=== PATIENT | male | born 1955 | race Caucasian/White ===

== ENCOUNTER 2020-01-29 07:30 | Outpatient (CLI) | payer OTHER, SELFPAY ==
--- NOTE | ~2020-01-29 | MR_ITS ---
EXAMINATION: MR foot RT wo con DATE: 01/29/2020 08:39 INDICATION: Stress fracture. TECHNIQUE: Magnetic resonance imaging (MRI) of the right foot was performed without intravenous contr ast. Sequences included sagittal T1-weighted FSE and STIR FSE, long-axis PD-weighted FS FSE and PD-we ighted FSE, and short-axis PD-weighted FS FSE and T1-weighted FSE. COMPARISON: None FINDINGS: Bone alignment is normal. No fracture. There is mild osteoarthritis of second tarsometatars al joint. There is mild osteoarthritis between the medial and intermediate cuneiforms. Lisfranc ligam ent is intact. The flexor and extensor tendons are normal. There is thickening of the included portio n of the central band of plantar fascia, consistent with fasciitis. IMPRESSION: 1. No fracture. 2. Mild polyarticular osteoarthritis. 3. Plantar fasciitis. Reviewed, dictated and finalized at location A.
== END 2020-01-29 07:31 | disposition home or self-care (01) ==
LOC: ANHIMG 07:35
PROVIDERS: PCP Emergency Medicine; Visit Provider Podiatrist Foot & Ankle Surgery
DX: M84.374A Stress fracture, right foot, initial encounter for fracture (principal); M19.071 Primary osteoarthritis, right ankle and foot; M72.2 Plantar fascial fibromatosis
CPT/HCPCS: 73718

== ENCOUNTER 2021-06-02 01:37 | Day surgery (SDC) | payer OTHER, SELFPAY ==
[2021-06-02] VITALS (16 sets, daily range): BP systolic 110–137; BP diastolic 70–83; PULSE 51–65; RESP 12–18; TEMP 36.2; O2SAT 94–98; BMI 30.1
[2021-06-02 08:06] LABS: INR 0.8; Prothrombin Time 11.4 Seconds (11.1-14.7)
--- NOTE | 2021-06-02 09:02 | P.SEDATION_ITS ---
Moderate Sedation Note-Pt Data Patient Data Allergies Allergy/AdvReac Type Severity Reaction Status Date / Time No Known Allergies Allergy Verified 05/11/21 10:09 Home Medications Medication Instructions Recorded Confirmed Type cholecalciferol (vitamin D3) 50 2,000 unit PO DAILY 08/08/19 06/01/21 History mcg (2,000 unit) tablet venlafaxine 75 mg capsule,extended 75 mg PO DAILY 04/02/21 06/01/21 History release 24 hr pravastatin 20 mg tablet 20 mg PO DAILY #90 tablet 05/06/21 06/01/21 Rx aspirin 81 mg tablet,delayed 81 mg PO DAILY 05/11/21 06/01/21 History release Current Medications: Active Medications Sodium Chloride (Normal Saline Iv) 500 mls @ 100 mls/hr IV CONT .Q5H YESSENIA Sedation/Anesthesia: No previous sedation/anesthesia problems (including family history). [facility] Past Medical History Medical History Hypogonadism Family History Family History Father Patient's father is in good health Mother No family history of cerebrovascular accident (CVA) Family history of Alzheimer's disease Other Family history of alcoholism Social History Social History Social History: Patient exercises 4-5 times per week. 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[employer] Gender identity (if verbalized by the patient): Female Sexual Orientation (if Verbalized by the Patient): Straight or Heterosexual Mod Sed Physical Exam Physical Exam Pre Procedural Exam: Normal: Airway Hours since solid foods: 10 Hours since liquid intake: 10 Mallampati Classification: class II Internal Medicine - PN: Obj Da Vital Signs Vital Signs: Vital Signs - 24 hr 06/02/21 07:30 Temperature 36.2 C L Pulse Rate 56 L Respiratory Rate 16 Blood Pressure 125/77 Pulse Oximetry 96 Meds/Results Medications: Active Medications Generic Name Dose Route Start Last Admin Trade Name Freq PRN Reason Stop Dose Admin Sodium Chloride 500 mls @ 100 mls/hr 06/02/21 07:00 Normal Saline Iv IV CONT .Q5H YESSENIA Labs Labs: Laboratory Results - last 24 hr 06/02/21 07:28 PT 11.4 INR 0.8 ASA Classification/Sedation ASA Classification/Sedation ASA Class: II Emergent: No Risks: Risks, benefits and alternatives explained and patient/family accepted plan for sedation. Patient re-evaluated immediately prior to sedation.
--- NOTE | 2021-06-02 09:04 | WPDHPUPDATE1 ---
History and Physical Update Update Date/Time: 06/02/21 09:04 History and Physical has been reviewed, including an updated exam of the patient. There are NO changes in the patient's condition. Risks, benefits, and alternatives have been discussed and questions answered. Patient agrees to proceed with procedure.
--- NOTE | 2021-06-02 09:36 | WPDCARDPROC ---
Cardiac Cath Procedure Note Date of procedure:: 06/02/21 Performing physician:: Jovon Lima MD Procedure Procedure performed:: LEFT HEART CATHETERIZATION AND CORONARY ANGIOGRAM REPORT DATE OF PROCEDURE:06/02/2021 INDICATION FOR PROCEDURE: Angina, obstructive CAD seen on coronary CT angiogram BRIEF CLINICAL HISTORY: 65-year-old male with no known prior cardiac history was referred by Dr. Lamb for coronary angiogram in the setting of angina and abnormal coronary CT angiogram. Patient apparently had coronary CT angiogram at [facility] on 04/20/21 which reportedly showed mid LAD with severe >70% stenosis; multifocal mild <50% RCA and LCx stenosis. Calcium score 277. Prior stress test from 03/23/2021 reported 1-[address] depression in inferior leads and V4-V6 c/w ischemia. Benefits and risks of the procedure were discussed with the patient in depth, and informed consent was obtained prior to the procedure. Risks of the procedure include but are not limited to vascular complications including groin hematoma, retroperitoneal bleed, vessel perforation; periprocedural GA, cardiac arrhythmias, stroke, contrast induced nephropathy, and . After discussing all the benefits, risks and alternatives, patient was willing to proceed with the procedure. PROCEDURES PERFORMED: 1. Left heart catheterization- Selective left and right coronary angiogram; left ventriculogram and hemodynamic assessment 2. Moderate sedation-CPT code 47082 MODERATE SEDATION: Midazolam 2 mg; fentanyl 50 mcg; Start time 0910 , Stop time 0927 ; Total [id number] time 17 minutes; Ted Villafana RN was trained observer for moderate sedation. ACCESS SITE: Right common femoral artery PROCEDURE NOTE: After obtaining informed consent, patient was brought to catheterization lab and prepped and draped in a usual sterile manner. After local anesthesia with lidocaine, right common femoral artery access was taken with micropuncture needle followed by insertion of a 6 [place]ian sheath. Selective left and right coronary angiogram was performed using 5 [place] JL4 and JR4 catheters respectively. Orthogonal views were taken. Next, a 5 [place] pigtail catheter was advanced in the LV cavity and was flushed with normal saline. LV pressure measurement was performed. After this, left ventriculogram was performed. The catheter was flushed again, and gradient across the aortic valve was measured on the pullback of the catheter. Patient tolerated procedure well without any immediate procedure related complications. FINDINGS: LEFT MAIN CORONARY: the left main coronary is a large caliber vessel with minimal narrowing at the ostium-proximal segment. The vessel trifurcates into LAD, ramus intermedius and left circumflex branches. LEFT ANTERIOR DESCENDING ARTERY: The proximal LAD is a medium caliber vessel with minor irregularities. There is high-grade about 90% stenosis in the lower most part of the proximal LAD and upper part of the mid LAD at the origin of the major diagonal branch. The major diagonal branch is a small to medium caliber vessel with high-grade stenosis in the ostium and in the proximal segment (Costa 1, 1, 1) . The LAD tapers distally and wraps LV apex. RAMUS INTERMEDIUS: A small to medium caliber vessel with high-grade about 80-90% stenosis in the proximal segment LEFT CIRCUMFLEX ARTERY: the left circumflex artery is a medium caliber vessel with mild narrowing at the ostium and minor diffuse irregularities. The vessel continues as OM branch. RIGHT CORONARY ARTERY: The right coronary artery is a medium caliber vessel with mild diffuse plaque in the Proximal- mid segment. The vessel gives rise to small caliber PDA and PLV branches. LEFT VENTRICULOGRAM: preserved overall LV systolic function with mild hypokinesis of anterior wall; ejection fraction 60-65%. LVEDP 4 mmHg. HEMODYNAMIC ASSESSMENT: Opening pressure 112/61 mmHg , closing pressure 110/40 mmHg , LVED
--- NOTE | 2021-06-02 16:45 | SUR.PHASEII ---
Pt departs department via wheelchair. Transported to private vehicle where is to drive patient home. DC instructions packet reviewed with patient. Pt aware of all limitations and restrictions, as well as follow up care instructions. All of patient's questions were answered. Pt verbalized understanding. IV discontinued, catheter intact, pressure applied, no bleeding noted. VSS upon DC.
== END 2021-06-02 16:45 | disposition home or self-care (01) ==
PROVIDERS: PCP Emergency Medicine; Visit Provider Internal Medicine Cardiovascular Disease
PROC: 4A023N7 Measurement of Cardiac Sampling and Pressure, Left Heart, Percutaneous Approach (ICD-10-PCS; CPT 93452; principal; 2021-06-02 08:30)
DX: I25.119 Atherosclerotic heart disease of native coronary artery with unspecified angina pectoris (principal); Z87.891 Personal history of nicotine dependence
CPT/HCPCS: 36415; 85610; 93458; C1887; C1894; J0461; J1644; J2250; J3010; J7040

== ENCOUNTER 2021-09-23 07:15 | Outpatient (RCR) | payer OTHER, SELFPAY ==
[2021-06-30 08:44] VITALS: PULSE 60
--- NOTE | 2021-08-13 08:43 | PCCPR ---
Absent Bal called this am states will not be in and is not ill.
--- NOTE | 2021-08-17 07:47 | PCCARD ---
Absent Bal called states will not be in due to an emergency.
--- NOTE | 2021-08-19 07:27 | PCCPR ---
Bal absent this week for illness.
== END 2021-09-23 16:52 | disposition home or self-care (01) ==
LOC: ANHCPREHAB 07:15
PROVIDERS: PCP Emergency Medicine; Visit Provider Internal Medicine Cardiovascular Disease
DX: Z95.5 Presence of coronary angioplasty implant and graft (principal)
CPT/HCPCS: 93798

== ENCOUNTER 2022-07-28 09:43 | Outpatient (CLI) | payer OTHER, SELFPAY ==
[2022-07-28 10:12] LABS: Cholesterol 149 mg/dL (0-200); HDL Direct 46 mg/dL; Triglycerides 123 mg/dL (<150)
[2022-07-28 10:23] LABS: LDL Cholesterol Direct 74 mg/dL
== END 2022-07-28 09:44 | disposition home or self-care (01) ==
PROVIDERS: PCP Emergency Medicine; Visit Provider Internal Medicine Cardiovascular Disease
DX: E78.5 Hyperlipidemia, unspecified (principal)
CPT/HCPCS: 36415; 80061

== ENCOUNTER 2023-02-11 07:23 | Emergency (ER) | payer OTHER, SELFPAY ==
--- NOTE | ~2023-02-11 | XR_ITS ---
EXAMINATION: XR chest 2V 02/11/2023 08:08 INDICATION: Heart palpitations. Shortness of breath. PROCEDURE: PA and lateral views of the chest COMPARISON: 06/13/2014 FINDINGS: The lungs are clear. The cardiomediastinal silhouette is within normal limits. There are no pleural effusions. There is no pneumothorax suspected. IMPRESSION: 1: NO ACUTE CARDIOPULMONARY DISEASE. Reviewed, dictated and finalized at location B.
--- NOTE | ~2023-02-11 | CT_ITS ---
Clinical Indication: Palpitations, elevated d-dimer CT Scan of the Chest with Contrast: Technique: Contiguous sections were acquired throughout the chest after intravenous administration of 100 cc of Omnipaque 350. Dose reduction technique was used on this scan by utilizing automated expos ure control and iterative reconstruction technique. The dose-length product (DLP) was 668.66 mGy-cm. Findings: There is no evidence of any significant mediastinal, hilar or axillary lymphadenopathy. There is no f illing defect in the pulmonary arterial tree to suggest pulmonary embolus. There is no evidence of ao rtic dissection or aneurysm. There is no evidence of pleural or pericardial effusion. The lungs are clear. No pulmonary nodules or infiltrates are noted. Images through the upper abdomen reveal no abnormalities. Impression: No evidence of pulmonary embolus, aortic dissection, or aortic aneurysm. Clear lungs. Reviewed, dictated and finalized at [facility]. Impression: No evidence of pulmonary embolus, aortic dissection, or aortic aneurysm. Clear lungs.
--- NOTE | 2023-02-11 07:29 | ECG_ITS ---
Measurements Intervals Home Rate: 106 P: 26 AL: 124 QRS: 47 QRSD: 90 T: 44 QT: 315 QTc: 419 Interpretive Statements SINUS TACHYCARDIA ABNORMAL ECG NO PREVIOUS ECG AVAILABLE FOR COMPARISON Electronically Signed On 02-11-2023 7:37:18 CDT by Matt Lamb D.O.
[2023-02-11 07:30] VITALS: BP 134/75; PULSE 108; RESP 30; TEMP 37.5; O2SAT 97
[2023-02-11 07:51] LABS: Basophils Percent Auto 0.4 % (0.2-1.2); Hematocrit 39.9 % (42.0-52.0); Hemoglobin 13.8 g/dL (14.0-18.0); Immature Granulocyte Absolute 0.02 K/mm3 (0.00-0.031); Immature Granulocyte Percent A 0.4 % (0-0.5); Lymphocytes Percent Auto 8.1 % (18.3-44.2); Mean Corpuscular HGB Conc 34.6 g/dl (32-36); Mean Corpuscular Hemoglobin 30.3 pg (26-34); Mean Corpuscular Volume 87.7 fl (80-100); Mean Platelet Volume 11.2 fl (7.4-10.4); Monocytes Percent Auto 0.4 % (2.6-8.5); Neutrophils Absolute Auto 4.5 K/mm3 (1.3-6.7); Neutrophils Percent Auto 90.7 % (45.5-73.1); Platelet Count Result 151 k/mm3 (150-375); Red Blood Count 4.55 M/mm3 (4.6-6.20); Red Cell Distribution Width 13.5 % (11.5-14.5); White Blood Count 4.9 K/mm3 (4.5-10.0)
--- NOTE | 2023-02-11 07:57 | ED.GENADULT ---
HPI - General Adult General Chief complaint: Unspecified Stated complaint: heart palp/sob Time Seen by Provider: 02/11/23 07:27 History of Present Illness HPI narrative: 67-year-old male presented to the emergency department for evaluation of hematuria and shortness of breath. Patient states he does have history of enlarged prostate follows up with Dr. Brown and patient does straight cath. Patient states last night when he was straight cathing he suspects he may have injured himself and patient did have bleeding. Patient did have some urinary bleeding throughout the night. Patient states he did not straight cath himself this morning. This morning when he woke up patient reports he was breathing heavily so he presented to the ED for evaluation. Patient denies any chest pain. Does have a prior history of cardiac stents that were placed at [facility] 1.5 years ago. Patient does take aspirin and Plavix. Patient denies any associated chest pain today. Related Data Home Medications Medication Instructions Recorded Confirmed venlafaxine 75 mg capsule,extended 75 mg PO DAILY 04/02/21 06/30/21 release 24 hr aspirin 81 mg tablet,delayed 81 mg PO DAILY 05/11/21 06/30/21 release (Adult Low Dose Aspirin) hydroxyzine HCl 50 mg tablet 50 mg PO DAILY PRN Itching 06/30/21 06/30/21 isosorbide mononitrate 30 mg 30 mg PO DAILY 06/30/21 06/30/21 tablet,extended release 24 hr metoprolol succinate 25 mg 25 mg PO DAILY 06/30/21 06/30/21 tablet,extended release 24 hr nitroglycerin 0.4 mg sublingual 0.4 mg sublingual Q5-15M PRN Chest 06/30/21 06/30/21 tablet Pain pantoprazole 40 mg tablet,delayed 40 mg PO QAM 06/30/21 06/30/21 release venlafaxine 37.5 mg 37.5 mg PO DAILY 06/30/21 06/30/21 tablet,extended release 24 hr Allergies Allergy/AdvReac Type Severity Reaction Status Date / Time No Known Allergies Allergy Verified 02/11/23 07:39 Review of Systems Review of Systems: All systems reviewed & are unremarkable except as noted in HPI and below PMFSH Past Medical History Medical History Hypogonadism Family History Family History Father Patient's father is in good health Mother No family history of cerebrovascular accident (CVA) Family history of Alzheimer's disease Other Family history of alcoholism Social History Social History Social History: Patient exercises 4-5 times per week. 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 HEAD: normocephalic, atraumatic. EYES: PERRLA/EOMI, conjunctivae clear. NOSE: Normal no drainage NECK: Supple. No adenopathy, no masses. RESPIRATORY: Airway patent, respirations nonlabored. Clear to auscultation bilaterally, no rales, rhonchi, wheezing. CARDIOVASCULAR: Regular rate and rhythm without murmurs rubs or gallops. ABDOMINAL: Soft, nontender, nondistended, normal bowel sounds MUSCULOSKELETAL: Moves all extremities. Strength/ROM intact, No edema, No calf tenderness. NEURO: Alert. Cranial nerves II through XII intact. SKIN: Warm, dry. Normal Color Course Course Emergency Course: 67-year-old
[2023-02-11 08:01] LABS: Alanine Aminotransferase 31 U/L (6-50); Albumin Level 4.1 g/dL (3.5-5.1); Alkaline Phosphatase 127 U/L (38-126); Anion Gap 10 mmol/L (8-16); Aspartate Amino Transferase 38 U/L (17-59); Bilirubin,Total 1.6 mg/dL (0.2-1.3); Blood Urea Nitrogen 16 mg/dL (9-20); Calcium 8.6 mg/dL (8.4-10.2); Carbon Dioxide 19 mmol/L (22-30); Chloride 106 mmol/L (98-107); Estimated CRCL calculation 72 ml/min; Estimated Glomerular Filt Rate > 60; Glucose 121 mg/dL (65-110); INR 1.1; Lipase 100 U/L (23-300); Potassium 3.8 mmol/L (3.4-5.0); Prothrombin Time 14.6 Seconds (11.1-14.7); Sodium 135 mmol/L (137-145)
[2023-02-11 08:03] LABS: Partial Thromboplastin Time 29.1 SECONDS (22.3-36.8)
[2023-02-11 08:13] LABS: Troponin I 0.014 ng/mL (0.000-0.034)
[2023-02-11 08:35] LABS: D Dimer 11.17 ug/mL (<0.48)
[2023-02-11 08:38] VITALS: RESP 27; O2SAT 99
[2023-02-11 09:12] LABS: Influenza A QL RT-PCR Negative (Negative); Influenza B QL RT-PCR Negative (Negative); RSV RNA, RT-PCR Negative (Negative); SARS-CoV-2 RNA PCR Negative (Negative)
[2023-02-11 09:32] VITALS: BP 105/73; PULSE 97; RESP 22; O2SAT 98
[2023-02-11 10:02] VITALS: BP 99/66; PULSE 89; RESP 24; O2SAT 100
[2023-02-11 10:24] LABS: Bacteria Urine 4+ /hpf; Non Pathogenic Casts 0-2; RBC Urine >100 /hpf (0-2); Squamous Epithelial Cell Urine None seen /hpf (Few); WBC Urine >100 /hpf
[2023-02-11 10:32] LABS: Appearance Urine Cloudy (Clear); Bilirubin Urine Negative (Negative); Blood Urine 3+ (Negative); Glucose Urine UA Negative (Negative); Ketones Urine Negative (Negative); Leukocyte Esterase Ur 3+ LEU/UL (Negative); Nitrate Urine Positive (Negative); Protein Urine 2+ mg/dL (Negative); Specific Grav Ur 1.009 (1.001-1.035); pH Urine 6.5 (5.0-9.0)
[2023-02-11 10:33] LABS: Color Urine Brown (Yellow)
[2023-02-11 10:34] LABS: Add Urine Microscopic? YES
--- NOTE | 2023-02-11 11:11 | PC.NURSE ---
report received from Darlyn BINGHAM at this time
[2023-02-11 11:28] LABS: Troponin I 0.034 ng/mL (0.000-0.034)
[2023-02-11 11:59] VITALS: BP 118/73; PULSE 88; RESP 16; O2SAT 99
== END 2023-02-11 12:00 | disposition home or self-care (01) ==
PROVIDERS: Emergency Provider Emergency Medicine; PCP Emergency Medicine; Referring Provider Urology
DX: N30.01 Acute cystitis with hematuria (principal); Z20.822 Contact with and (suspected) exposure to COVID-19; N40.0 Benign prostatic hyperplasia without lower urinary tract symptoms; Z95.5 Presence of coronary angioplasty implant and graft; Z87.891 Personal history of nicotine dependence; Z79.82 Long term (current) use of aspirin; Z79.02 Long term (current) use of antithrombotics/antiplatelets
CPT/HCPCS: 36415; 71046; 71275; 80053; 81001; 83690; 84484; 85025; 85380; 85610; 85730; 87077; 87086; 87186; 87637; 93005; 96365; 99284; J0696; Q9967

== ENCOUNTER 2023-04-07 11:21 | Outpatient (CLI) | payer OTHER, SELFPAY | END 2023-04-07 11:22 | disposition home or self-care (01) | PROVIDERS: PCP Emergency Medicine; Visit Provider Urology | DX: N40.0 Benign prostatic hyperplasia without lower urinary tract symptoms (principal); Z01.818 Encounter for other preprocedural examination | CPT/HCPCS: 87077; 87086; 87186 ==

== ENCOUNTER 2023-05-19 08:04 | Outpatient (CLI) | payer OTHER, SELFPAY ==
[2023-05-19 08:48] LABS: Basophils Absolute Auto 0.1 K/mm3 (0.0-0.1); Basophils Percent Auto 0.9 % (0.2-1.2); Eosinophils Absolute Auto 0.1 K/mm3 (0-0.3); Eosinophils Percent Auto 1.5 % (0-4.4); Hematocrit 40.7 % (42.0-52.0); Hemoglobin 12.9 g/dL (14.0-18.0); Immature Granulocyte Absolute 0.03 K/mm3 (0.00-0.031); Immature Granulocyte Percent A 0.4 % (0-0.5); Lymphocytes Absolute Auto 2.61 K/mm3 (0.9-3.2); Lymphocytes Percent Auto 34.8 % (18.3-44.2); Mean Corpuscular HGB Conc 31.7 g/dl (32-36); Mean Corpuscular Volume 88.3 fl (80-100); Monocytes Absolute Auto 0.4 K/mm3 (0.1-0.6); Monocytes Percent Auto 5.5 % (2.6-8.5); Neutrophils Absolute Auto 4.3 K/mm3 (1.3-6.7); Neutrophils Percent Auto 56.9 % (45.5-73.1); Platelet Count Result 331 k/mm3 (150-375); Red Blood Count 4.61 M/mm3 (4.6-6.20); Red Cell Distribution Width 14.3 % (11.5-14.5); White Blood Count 7.5 K/mm3 (4.5-10.0)
[2023-05-19 09:22] LABS: Partial Thromboplastin Time 33.9 SECONDS (22.3-36.8); Prothrombin Time 13.9 Seconds (11.1-14.7)
== END 2023-05-19 08:05 | disposition home or self-care (01) ==
LOC: ANHSURGERY 08:07
PROVIDERS: PCP Emergency Medicine; Visit Provider Urology
DX: Z01.818 Encounter for other preprocedural examination (principal); N40.0 Benign prostatic hyperplasia without lower urinary tract symptoms
CPT/HCPCS: 36415; 85025; 85610; 85730; 87086

== ENCOUNTER 2023-05-24 02:41 | Day surgery (SDC) | payer OTHER, SELFPAY ==
--- NOTE | 2023-03-21 10:26 | PC.NURSE ---
Report to the Outpatient Waiting Room, entrance under the green pavilion located off [facility], at time _1000 on date _03/29/23 . Planned Procedure Time: ___1200 . Time changes happen often and if your time is changed the preop area will call you the afternoon before. - You and your visitor will be asked to self-screen and do not enter if you have any COVID symptoms. - A mask is optional within the hospital at this time. Patients may have clear liquids (water, carbonated beverages, clear teas, apple juice) until 3 hours prior to surgery with a maximum of 20 ounces. - No food from midnight until time of surgery - Infants may have breast milk until 4 hours before surgery, infant formula 6 hours prior to surgery. - Children will be allowed to drink immediately following surgery. If applicable, please bring a bottle or sippy cup to assist with drinking. Juice, water, soda, and popsicles are readily available. For infants on formula, please bring formula the day of surgery. Pacifiers are allowed. Take the following medications with a SIP of water the morning of surgery: ____METOPROLOL,VENLAFAXINE DO NOT STOP ANY OF YOUR OTHER PRESCRIPTION MEDICATIONS PRIOR TO SURGERY ?EXCEPT THE FOLLOWING Medications to discontinue per physician ____ASPIRIN AND PLAVIX 7 DAYS PER OP PER DR HERNANDEZ.LAST DOSE 03/21/23 Please no make-up, nail slovak, hairspray, perfume, deodorant, or body powder the day of surgery. No jewelry (including any body piercings) or valuables the day of surgery, leave them at home. Please take a shower or bath the night before, or the morning of, surgery with an antibacterial soap. Wear comfortable, loose fitting clothing. Children are encouraged to wear pajamas. - Jewelry must be removed prior to entering the operating room. Rings and piercings that are not removed may be cut off. - The hospital will not accept responsibility for valuables. - Please leave all valuables, including medications, at home the day of surgery. If you are going home after surgery, a licensed fuel truck driver must drive you home. - NO public transportation without another adult if you receive anesthesia. - We recommend that an adult stay with you for 24 hours following discharge. - We also recommend that you do not drive, make important decision, drink alcoholic beverages, or take any drugs that were not prescribed by your health care provider for at least 24 hours after your discharge time. For Pediatric surgeries, we recommend two adults accompany the child home. Follow any additional instructions given to you from your surgeon. If you or anyone in your household have experienced Covid symptoms in the past week, please notify your surgeon or the nurse liaison at the phone number below for possible testing. Telephone instructions given to __PATIENT and asked if any additional questions and then verbalized understanding. Patient advised to call surgeon office or pre surgery nurse liaison [phone] if any additional questions.
[2023-03-21 10:34] VITALS: BMI 30.4
--- NOTE | 2023-03-28 10:38 | WPDANESEPPF ---
Anes - Initial Pre Proc Eval Procedure: Operation Date: 03/29/23 12:00 Proposed Procedures p Trans Urethral Resection Prostate - Blaine Brown MD Date/Time: 03/28/23 10:38 Surgeon: Blaine Brown MD Pre Op Diagnosis: bph Patient Data Age: 67 Gender: M Height: 1.8 m Weight: 98.9 kg Allergies Allergy/AdvReac Type Severity Reaction Status Date / Time No Known Allergies Allergy Verified 03/21/23 10:15 Home Medications Medication Instructions Recorded Confirmed Type aspirin 81 mg tablet,delayed 81 mg PO DAILY 05/11/21 03/21/23 History release (Adult Low Dose Aspirin) atorvastatin 80 mg tablet 80 mg PO HS #30 tabs 06/02/21 03/21/23 Rx hydroxyzine HCl 50 mg tablet 50 mg PO DAILY PRN Anxiety 06/30/21 03/21/23 History metoprolol succinate 25 mg 25 mg PO DAILY 06/30/21 03/21/23 History tablet,extended release 24 hr nitroglycerin 0.4 mg sublingual 0.4 mg sublingual Q5-15M PRN Chest 06/30/21 03/21/23 History tablet Pain pantoprazole 40 mg tablet,delayed 40 mg PO QAM 06/30/21 03/21/23 History release clopidogrel 75 mg tablet 75 mg PO DAILY 03/21/23 03/21/23 History tamsulosin 0.4 mg capsule 0.4 mg PO DAILY 03/21/23 03/21/23 History venlafaxine 150 mg 150 mg PO QAM 03/21/23 03/21/23 History capsule,extended release 24 hr Results Review: All pre-operative results and documents have been reviewed as part of the pre-operative evaluation. [facility] Past Medical History Medical History Hypogonadism Family History Family History Father Patient's father is in good health Mother No family history of cerebrovascular accident (CVA) Family history of Alzheimer's disease Other Family history of alcoholism Social History Social History Social History: Patient exercises 4-5 times per week. 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 Informed Consent: The patient's anesthetic plan and its attendant risks and benefits were discussed with the patient/family/POA. Questions were solicited and answers provided to the satisfaction of the patient/family/POA.
--- NOTE | 2023-03-28 15:12 | PC.NURSE ---
Report to the Outpatient Waiting Room, entrance under the green pavilion located off [facility], at time _0800 on date _04/12/23 . Planned Procedure Time: ___1000 . Time changes happen often and if your time is changed the preop area will call you the afternoon before. - You and your visitor will be asked to self-screen and do not enter if you have any COVID symptoms. - A mask is optional within the hospital at this time. Patients may have clear liquids (water, carbonated beverages, clear teas, apple juice) until 3 hours prior to surgery with a maximum of 20 ounces. - No food from midnight until time of surgery - Infants may have breast milk until 4 hours before surgery, infant formula 6 hours prior to surgery. - Children will be allowed to drink immediately following surgery. If applicable, please bring a bottle or sippy cup to assist with drinking. Juice, water, soda, and popsicles are readily available. For infants on formula, please bring formula the day of surgery. Pacifiers are allowed. Take the following medications with a SIP of water the morning of surgery: ____METOPROLOL,VENLAFAXINE DO NOT STOP ANY OF YOUR OTHER PRESCRIPTION MEDICATIONS PRIOR TO SURGERY ?EXCEPT THE FOLLOWING Medications to discontinue per physician ___HOLD ASPIRIN AND PLAVIX 7 DAYS PRE OP PER DR HERNANDEZ.LAST DOSE 04/04/23 Please no make-up, nail lao, hairspray, perfume, deodorant, or body powder the day of surgery. No jewelry (including any body piercings) or valuables the day of surgery, leave them at home. Please take a shower or bath the night before, or the morning of, surgery with an antibacterial soap. Wear comfortable, loose fitting clothing. Children are encouraged to wear pajamas. - Jewelry must be removed prior to entering the operating room. Rings and piercings that are not removed may be cut off. - The hospital will not accept responsibility for valuables. - Please leave all valuables, including medications, at home the day of surgery. If you are going home after surgery, a licensed driver license agent must drive you home. - NO public transportation without another adult if you receive anesthesia. - We recommend that an adult stay with you for 24 hours following discharge. - We also recommend that you do not drive, make important decision, drink alcoholic beverages, or take any drugs that were not prescribed by your health care provider for at least 24 hours after your discharge time. For Pediatric surgeries, we recommend two adults accompany the child home. Follow any additional instructions given to you from your surgeon. If you or anyone in your household have experienced Covid symptoms in the past week, please notify your surgeon or the nurse liaison at the phone number below for possible testing. Telephone instructions given to ___PATIENT and asked if any additional questions and then verbalized understanding. Patient advised to call surgeon office or pre surgery nurse liaison [phone] if any additional questions.
--- NOTE | 2023-03-28 15:16 | PC.NURSE ---
PT STATES ONLY CHANGE IN HEALTH HX IS UTI.STARTED ANTIBIOTIC BID X 10 DAYS.FIRST DOSE 03/28/23
--- NOTE | 2023-05-16 16:17 | PC.NURSE ---
Report to the Outpatient Waiting Room, entrance under the green pavilion located off [facility], at time __0800 on date __05/24/23 . Planned Procedure Time: _1000 . Time changes happen often and if your time is changed the preop area will call you the afternoon before. - You and your visitor will be asked to self-screen and do not enter if you have any COVID symptoms. - A mask is optional within the hospital at this time. Patients may have clear liquids (water, carbonated beverages, clear teas, apple juice) until 3 hours prior to surgery with a maximum of 20 ounces. - No food from midnight until time of surgery - Infants may have breast milk until 4 hours before surgery, infant formula 6 hours prior to surgery. - Children will be allowed to drink immediately following surgery. If applicable, please bring a bottle or sippy cup to assist with drinking. Juice, water, soda, and popsicles are readily available. For infants on formula, please bring formula the day of surgery. Pacifiers are allowed. Take the following medications with a SIP of water the morning of surgery: __METOPROLOL,VENLAFAXINE,CIPRO DO NOT STOP ANY OF YOUR OTHER PRESCRIPTION MEDICATIONS PRIOR TO SURGERY ?EXCEPT THE FOLLOWING Medications to discontinue per physician HOLD ASPIRIN AND PLAVIX 7 DAYS PRE OP PER DR HERNANDEZ.LAST DOSE 05/16/23 Please no make-up, nail ukrainian, hairspray, perfume, deodorant, or body powder the day of surgery. No jewelry (including any body piercings) or valuables the day of surgery, leave them at home. Please take a shower or bath the night before, or the morning of, surgery with an antibacterial soap. Wear comfortable, loose fitting clothing. Children are encouraged to wear pajamas. - Jewelry must be removed prior to entering the operating room. Rings and piercings that are not removed may be cut off. - The hospital will not accept responsibility for valuables. - Please leave all valuables, including medications, at home the day of surgery. If you are going home after surgery, a licensed drop hammer pile driver operator must drive you home. - NO public transportation without another adult if you receive anesthesia. - We recommend that an adult stay with you for 24 hours following discharge. - We also recommend that you do not drive, make important decision, drink alcoholic beverages, or take any drugs that were not prescribed by your health care provider for at least 24 hours after your discharge time. For Pediatric surgeries, we recommend two adults accompany the child home. Follow any additional instructions given to you from your surgeon. If you or anyone in your household have experienced Covid symptoms in the past week, please notify your surgeon or the nurse liaison at the phone number below for possible testing. Telephone instructions given to ___PATIENT and asked if any additional questions and then verbalized understanding. Patient advised to call surgeon office or pre surgery nurse liaison [phone] if any additional questions.
--- NOTE | 2023-05-16 16:24 | PC.NURSE ---
PT STATES NO CHANGE IN HEALTH HX. DOES HAVE ANOTHER UTI .STARTED CIPRO 05/13/23
[2023-05-24] VITALS (13 sets, daily range): BP systolic 107–140; BP diastolic 61–77; PULSE 50–71; RESP 12–18; TEMP 36.2–36.9; O2SAT 97–100
--- NOTE | 2023-05-24 07:39 | WPDHPUPDATE1 ---
History and Physical Update Update Date/Time: 05/24/23 07:39 History and Physical has been reviewed, including an updated exam of the patient. There are NO changes in the patient's condition. Risks, benefits, and alternatives have been discussed and questions answered. Patient agrees to proceed with procedure. Proceed with turp
[2023-05-24] MEDS: LACTATED RINGERS 1,000 ML 30 ML IV CONT ×2 (07:45→10:45)
--- NOTE | 2023-05-24 08:32 | WPDANESEPPF ---
Anes - Initial Pre Proc Eval Procedure: Operation Date: 05/24/23 10:00 Proposed Procedures p Trans Urethral Resection Prostate - Blaine Brown MD Date/Time: 05/24/23 08:32 Surgeon: Blaine Brown MD Pre Op Diagnosis: bph Patient Data Age: 67 Gender: M Height: 1.8 m Weight: 97.5 kg Last Vital Signs Temp 36.9 C 05/24/23 07:36 Pulse 60 05/24/23 07:36 Resp 16 05/24/23 07:36 BP 124/77 05/24/23 07:36 Pulse Ox 97 05/24/23 07:36 O2 Del Method Room Air 05/24/23 07:36 Allergies Allergy/AdvReac Type Severity Reaction Status Date / Time No Known Allergies Allergy Verified 05/24/23 07:59 Home Medications Medication Instructions Recorded Confirmed Type aspirin 81 mg tablet,delayed 81 mg PO DAILY 05/11/21 05/24/23 History release (Adult Low Dose Aspirin) atorvastatin 80 mg tablet 80 mg PO HS #30 tabs 06/02/21 05/24/23 Rx hydroxyzine HCl 50 mg tablet 50 mg PO DAILY PRN Anxiety 06/30/21 05/24/23 History metoprolol succinate 25 mg 25 mg PO DAILY 06/30/21 05/24/23 History tablet,extended release 24 hr nitroglycerin 0.4 mg sublingual 0.4 mg sublingual Q5-15M PRN Chest 06/30/21 05/16/23 History tablet Pain pantoprazole 40 mg tablet,delayed 40 mg PO QAM 06/30/21 05/24/23 History release clopidogrel 75 mg tablet 75 mg PO DAILY 03/21/23 05/24/23 History tamsulosin 0.4 mg capsule 0.4 mg PO DAILY 03/21/23 05/24/23 History venlafaxine 150 mg 150 mg PO QAM 03/21/23 05/24/23 History capsule,extended release 24 hr ciprofloxacin HCl 500 mg tablet 500 mg PO BID 05/16/23 05/24/23 History Patient hx anesthesia problems: none Family hx anesthesia problems: none Results Review: All pre-operative results and documents have been reviewed as part of the pre-operative evaluation. [facility] Past Medical History Medical History Hypogonadism Family History Family History Father Patient's father is in good health Mother No family history of cerebrovascular accident (CVA) Family history of Alzheimer's disease Other Family history of alcoholism Social History Social History Social History: Patient exercises 4-5 times per week. 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[employer] Gender identity (if verbalized by the patient): Female Sexual Orientation (if Verbalized by the Patient): Straight or Heterosexual Spiritual care concerns: No Anes - Eval Final PreProcedure Day of Procedure 05/24/23 08:32 Patient weight: obese Heart: regular rate and rhythm Lungs: decreased breath sounds Airway: Mallampati scale class III Neurological: alert and oriented Last oral intake: >/= 8 hours ASA classification: III Emergent: no Anesthetic plan: proceed Anesthesia type and monitoring: general LMA and standard monitoring Results Review: All pre-operative results and documents have been reviewed as part of the pre-operative evaluation. Informed Consent: The patient's anesthetic plan and its attendant risks and benefits were discussed with the patient/family/POA. Questions were solicited and answers provided to the satisfaction of the patient/family/POA.
[2023-05-24] MEDS: LIDOCAINE HCL 2% GEL UROJET 10 ML PKG MUCOUS MEM (09:44)
[2023-05-24] MEDS: ceFAZolin 2 GM/D5W 50 ML 2 GM/50 ML BAG IVPB (09:44)
--- NOTE | 2023-05-24 10:41 | W.PM.PROC2 ---
Procedure Note - Detailed Date of Procedure 05/24/23 Pre-op Diagnosis bph, urinary retention Post-op Diagnosis Same Procedure Performed Urethral dilation, transurethral resection of prostate Surgeon Blaine Brown MD Anesthesia General Description of Procedure Patient is taken the operative suite correctly identified. Once anesthesia was obtained was placed in dorsal lithotomy position and prepped draped sterile fashion. The meatus is somewhat tight area. I dilated using male sounds up to 24 Gibraltarian. Twenty-four Gibraltarian obturator was placed into the bladder. Again it does not appear overly obstructing prostate but his urodynamics reported otherwise. He has a very floppy type bladder. None the less we resected from the bladder neck to the verumontanum circumferentially. Specimens were sent for analysis. Hemostasis was achieved using electrocautery. 2% viscous lidocaine was inserted urethra. A [address] was too tight in the meatus. I thus placed a [address] and inflated with 20 cc of sterile water. This was connected to continuous bladder irrigation. Patient is taken recovery stable condition. This completes the taken place and a copy to my office Estimated Blood Loss 25 Drains Yes Packing No Pathology Yes Complications No immediate complications Condition Stable Disposition PACU
--- NOTE | 2023-05-24 12:15 | ADMGEN ---
This patient, Serge Denton, was admitted to 3 [facility] Surg Room 320-01. Patient/family oriented to hospital policies and general routines including ID bracelet, bed and alarms, visiting hours, pain management, procedures, bathroom and other care routines, personal items, smoking policy, room service/diet, and visiting hours. Information on how to activate the Rapid Response Team has been discussed. Patient/Family are encouraged to report perceived risks to care and to ask questions if they do not understand what they are told or what they should do.
[2023-05-24] MEDS: ceFAZolin 1 GM/NS 50 ML 1 GM/50 ML BAG IVPB (17:14)
[2023-05-24] MEDS: ATORVASTATIN 40 MG TABLET 80 MG PO (21:22)
[2023-05-24] MEDS: DOCUSATE SODIUM 100 MG CAPSULE PO (21:22)
[2023-05-25] VITALS: BP 107/61; PULSE 50; RESP 12; TEMP 36.4; O2SAT 97
[2023-05-25] MEDS: ceFAZolin 1 GM/NS 50 ML 1 GM/50 ML BAG IVPB (01:51)
[2023-05-25 04:00] VITALS: BP 122/65; PULSE 51; RESP 12; TEMP 36.3; O2SAT 97
[2023-05-25 06:42] LABS: Hematocrit 38.4 % (42.0-52.0); Hemoglobin 12.3 g/dL (14.0-18.0)
[2023-05-25 06:53] LABS: Anion Gap 4 mmol/L (8-16); Blood Urea Nitrogen 15 mg/dL (9-20); Calcium 8.8 mg/dL (8.4-10.2); Carbon Dioxide 26 mmol/L (22-30); Chloride 106 mmol/L (98-107); Estimated CRCL calculation 69 ml/min; Estimated Glomerular Filt Rate > 60; Glucose 121 mg/dL (65-110); Sodium 136 mmol/L (137-145)
[2023-05-25 08:00] VITALS: BP 117/59; PULSE 59; RESP 18; TEMP 36.1; O2SAT 96
[2023-05-25 09:37] VITALS: PULSE 59
[2023-05-25] MEDS: DOCUSATE SODIUM 100 MG CAPSULE PO (09:37)
[2023-05-25] MEDS: CEPHALEXIN 500 MG CAPSULE PO ×2 (09:37→12:33)
[2023-05-25] MEDS: VENLAFAXINE HCL XR 75 MG CAP.ER.24H 150 MG PO (09:37)
[2023-05-25] MEDS: PANTOPRAZOLE 40 MG TABLET PO (09:37)
[2023-05-25] MEDS: METOPROLOL SUCCINATE EXT REL 25 MG TABCR PO (09:37)
--- NOTE | 2023-05-25 12:06 | WPDUROPN2 ---
Progress Note: A&P Assessment and Plan (1) BPH (benign prostatic hyperplasia): Qualifiers: Lower urinary tract symptom presence: symptoms present Lower urinary tract symptom detail: urinary frequency Qualified Code(s): N40.1 - Benign prostatic hyperplasia with lower urinary tract symptoms; R35.0 - Frequency of micturition Code(s): N40.0 - Benign prostatic hyperplasia without lower urinary tract symptoms Status: Acute Assessment and Plan: Patient's urine remains clear off CBI with activity. Ok to discharge home with calderon catheter. Subjective Subjective Date/Time Seen: 05/25/23 12:06 Post Op day: 1 Interval history: Patient is s/p TURP. Urine is light yellow with small clots on CBI. I turned CBI to off this morning to encourage activity to see if urine would become more bloody. He is tolerating diet and activity. He has no reported pain. Review of Systems Respiratory: Respiratory: Reports no additional respiratory complaints Genitourinary: Genitourinary: Denies hematuria, Denies dysuria, Denies flank pain, Denies urinary frequency and Denies urinary hesitancy Exam Const: General: cooperative and comfortable Resp: Effort & Inspection: normal respiratory effort Cardio: Rate: regular rate GI: GI Palp: Yes Soft to palpation and No Tenderness to palpation present (GI) : General: Yes no CVA tenderness Urinary Catheter: Urinary Catheter: patent and draining and urine clear Extrem: Right lower extremity: no edema Left lower extremity: no edema Objective Data Vital Signs Vital Signs: Vital Signs - 24 hr 05/24/23 12:25 05/24/23 12:40 05/24/23 13:10 Temperature 97.1 F L 97.4 F L 97.3 F L Pulse Rate 55 L 62 50 L Respiratory Rate 18 18 18 Blood Pressure 128/69 140/77 126/74 Pulse Oximetry 99 100 100 Oxygen Delivery 05/24/23 14:10 05/24/23 18:32 05/24/23 20:00 Temperature 97.5 F L 97.8 F 97.4 F L Pulse Rate 53 L 50 L 54 L Respiratory Rate 18 18 14 Blood Pressure 134/73 112/61 107/66 Pulse Oximetry 99 98 97 Oxygen Delivery 05/25/23 00:00 05/25/23 04:00 05/25/23 08:00 Temperature 97.6 F 97.3 F L 97.0 F L Pulse Rate 50 L 51 L 59 L Respiratory Rate 12 12 18 Blood Pressure 107/61 122/65 117/59 L Pulse Oximetry 97 97 96 Oxygen Delivery 05/25/23 09:37 05/25/23 09:37 Temperature Pulse Rate 59 L 59 L Respiratory Rate Blood Pressure Pulse Oximetry Oxygen Delivery Room Air Intake/Output Intake/Output: Intake & Output 05/22/23 05/23/23 05/24/23 05/25/23 23:59 23:59 23:59 23:59 Intake Total 6840 8540 Output Total 7103 5163 Balance -335 1989 Meds/Results Medications: Active Medications Generic Name Dose Route Start Last Admin Trade Name Freq PRN Reason Stop Dose Admin Hydrocodone Bitart/Acetaminophen 1 tab 05/24/23 12:06 Hydrocodone/Acetaminophen (*Crx) 5-325 Mg Tablet PO Q4H PRN Pain Rated 1-6 Atorvastatin Calcium 80 mg 05/24/23 21:00 05/24/23 21:22 Atorvastatin 40 Mg Tablet PO 80 mg HS YESSENIA Administration Cephalexin HCl 500 mg 05/25/23 09:00 05/25/23 09:37 Cephalexin 500 Mg Capsule PO 500 mg QID YESSENIA Administration Docusate Sodium 100 mg 05/24/23 21:00 05/25/23 09:37 Docusate Sodium 100 Mg Capsule PO 100 mg Q12HR YESSENIA Administration Hydroxyzine HCl 50 mg 05/24/23 12:06 Hydroxyzine Hcl 25 Mg Tablet PO DAILY PRN Anxiety Hyoscyamine 0.125 mg 05/24/23 12:06 Hyoscyamine Sulfate 0.125 Mg Tablet SUBLINGUAL Q6H PRN Bladder Spasm Metoprolol Succinate 25 mg 05/25/23 09:00 05/25/23 09:37 Metoprolol Succinate Ext Rel 25 Mg Tabcr PO 25 mg DAILY YESSENIA Administration Morphine Sulfate 2 mg 05/24/23 12:06 Morphine Sulfate (*Crx) 2 Mg/Ml Inj IV PUSH Q2H PRN Pain Rated 7-10 Naloxone HCl 0.1 mg 05/24/23 12:06 Naloxone Hcl 0.4 Mg/Ml Vial IV PUSH Q2M PRN Opiate Reversal Nitroglycerin 0.4 mg 05/24/23 12:06
--- NOTE | 2023-05-25 12:47 | PC.NURSE ---
Addendum entered by Emmie Rosas RN 05/25/23 14:11: Pt taken to personal vehicle via wheel chair. Pt and significant other educated on use of leg bag and calderon bag, when to changed, and proper hygiene/care for calderon. Pt and significant other verbalize understanding. IV removed and tolerated well. Pt notified of follow up appointment and educated on discharge instructions. Pt was monitored for any changes in status while here. Original Note: Pt A&O4 male who has participated and contributed in plan of care. Pt denies any pain. Pt urine pink tinged, urology aware. Urology stopped CBI this AM. Pt tolerating well. Pt discharging home. Pt and significant other will be educated on calderon care and how to change bags. Pt IV will be removed prior to discharge. Pt to follow up tuesday with urology where calderon will be removed, appointment will be made. Will continue to monitor pt until discharge.
== END 2023-05-25 14:10 | disposition home or self-care (01) ==
LOC: ANHSURGERY 07:20 → ANH3MEDSUR 12:08
PROVIDERS: PCP Emergency Medicine; Visit Provider Urology
PROC: 0VT08ZZ Resection of Prostate, Via Natural or Artificial Opening Endoscopic (ICD-10-PCS; CPT 52601; principal; 2023-05-24 10:00)
DX: N40.1 Benign prostatic hyperplasia with lower urinary tract symptoms (principal); R33.8 Other retention of urine; Z79.02 Long term (current) use of antithrombotics/antiplatelets; Z79.82 Long term (current) use of aspirin; Z87.891 Personal history of nicotine dependence; E66.9 Obesity, unspecified; Z68.30 Body mass index [BMI] 30.0-30.9, adult
CPT/HCPCS: 52601; 36415; 80048; 85014; 85018; 85025; 85610; 85730; 87086; 88305; A9270; J0690; J1100; J2250; J2405; J2704; J3010; J7120

== ENCOUNTER 2023-06-20 16:22 | Inpatient (IN) | payer OTHER, SELFPAY ==
[2023-06-20] VITALS (8 sets, daily range): BP systolic 97–115; BP diastolic 55–64; PULSE 60–90; RESP 12–20; TEMP 36.4–37.1; O2SAT 98–100; BMI 30.4
--- NOTE | ~2023-06-20 | US_ITS ---
EXAMINATION: US pelvic limited DATE: 06/20/2023 20:56 INDICATION: Hematuria. TECHNIQUE: Multiple transabdominal sonographic images of the pelvis were obtained. COMPARISON: None. FINDINGS: The bladder volume is small. There is a Brown catheter in the bladder. The bladder is filled with ech ogenic material. IMPRESSION: 1. Echogenic material in the bladder, likely hematoma. Reviewed, dictated and finalized at location E.
--- NOTE | ~2023-06-20 | XR_ITS ---
EXAMINATION: XR chest 1V portable DATE: 06/20/2023 18:15 INDICATION: Dizziness. TECHNIQUE: A single frontal view of the chest was obtained. COMPARISON: Chest 2 views 02/11/2023, chest CT 02/11/2023 FINDINGS: There is no pneumonia, pleural effusion, or pneumothorax. The heart size is normal. IMPRESSION: 1. No acute cardiopulmonary disease. Reviewed, dictated and finalized at location E.
--- NOTE | 2023-06-20 17:11 | ECG_ITS ---
Measurements Intervals [place] Rate: 103 P: 12 MD: 136 QRS: -1 QRSD: 93 T: 79 QT: 313 QTc: 410 Interpretive Statements SINUS TACHYCARDIA POSSIBLE LEFT ATRIAL ENLARGEMENT BORDERLINE R WAVE PROGRESSION, ANTERIOR LEADS CONSIDER INFERIOR INFARCT, AGE INDETERMINATE BORDERLINE ST-T WAVE ABNORMALITY- HIGH LATERAL LEADS BASELINE ARTIFACT- I, II, III, AVR, AVF, V3, V6 ABNORMAL ECG COMPARED TO ECG 02/11/2023 07:32:11 NO SIGNIFICANT CHANGES Electronically Signed On 06-21-2023 6:20:37 CDT by Matt Lamb D.O.
--- NOTE | 2023-06-20 17:28 | ED.MALEGU ---
HPI - Male Genitourinary General Chief complaint: Urogenital-Male <Isa Wade PA-C - Last Filed: 06/20/23 21:00> Stated complaint: Urinary bleeding <Isa Wade PA-C - Last Filed: 06/20/23 21:00> Time Seen by Provider: 06/20/23 17:09 <Isa Wade PA-C - Last Filed: 06/20/23 21:00> Source: patient <ALANNA Quinn Last Filed: 06/20/23 21:00> Mode of arrival: ambulatory <Isa Wade PA-C - Last Filed: 06/20/23 21:00> Limitations: no limitations <Isa Wade PA-C - Last Filed: 06/20/23 21:00> History of Present Illness HPI Narrative: This is a 67 year old male that presents to the ER for hematuria. Reports he straight caths due to enlarged prostate. Reports since he straight cathed this morning he has had hematuria. Reports dark red urine. Reports some discomfort. Patient also reports feeling lightheaded today. Reports he had a fall earlier as he was feeling lightheaded after he stood up. He did not hit his head or lose consciousness. Denies any focal injuries or areas of pain since. Denies fever, vomiting or flank pain. <Isa Wade PA-C - Last Filed: 06/20/23 21:00> Related Data Home medications: Home Medications Medication Instructions Recorded Confirmed aspirin 81 mg tablet,delayed 81 mg PO DAILY 05/11/21 06/20/23 release (Adult Low Dose Aspirin) hydroxyzine HCl 50 mg tablet 25 mg PO DAILY PRN Anxiety 06/30/21 06/20/23 metoprolol succinate 25 mg 25 mg PO DAILY 06/30/21 06/20/23 tablet,extended release 24 hr nitroglycerin 0.4 mg sublingual 0.4 mg sublingual Q5-15M PRN Chest 06/30/21 06/20/23 tablet Pain clopidogrel 75 mg tablet 75 mg PO DAILY 03/21/23 06/20/23 tamsulosin 0.4 mg capsule 0.4 mg PO DAILY 03/21/23 06/20/23 venlafaxine 150 mg 150 mg PO QAM 03/21/23 06/20/23 capsule,extended release 24 hr (Effexor XR) <Isa Wade PA-C - Last Filed: 06/20/23 21:00> Allergies/Adverse reactions: Allergies Allergy/AdvReac Type Severity Reaction Status Date / Time No Known Allergies Allergy Verified 06/20/23 16:50 <Isa aWde PA-C - Last Filed: 06/20/23 21:00> Review of Systems Review of Systems: CONSTITUTIONAL: Denies fever GASTROINTESTINAL: Denies abdominal pain, nausea, vomiting GENITOURINARY: Reports dysuria and hematuria. <Isa Wade PA-C - Last Filed: 06/20/23 21:00> All systems reviewed & are unremarkable except as noted in HPI and below <Isa Wade PA-C - Last Filed: 06/20/23 21:00> [facility] Past Medical History Medical History: Medical History Depression HLD (hyperlipidemia) Hypogonadism <Isa Wade PA-C - Last Filed: 06/20/23 21:00> Surgical History Surgical History: Surgical History (Updated 06/21/23 @ 14:43 by Serge Barnard MD) Hx of cystoscopy <Isa Wade PA-C - Last Filed: 06/20/23 21:00> Family History Family History: Family History Father Patient's father is in good health Mother No family history of cerebrovascular accident (CVA) Family history of Alzheimer's disease Other Family history of alcoholism <Isa Wade PA-C - Last Filed: 06/20/23 21:00> Social History Social History: Social History Social History: Patient exercises 4-5 times per week. Smoking packs per day: 2 Smoking cigarettes per day: 40.0 Years smoked: 20 Smoking pack-years: 40.00 Smoking status: Former smoker Tobacco type: cigarettes Second hand tobacco smoke exposure: No Smoking end date: 10/03/89 Alcohol intake: never Substance use: never Substance use type: does not use Lack of Transportation: No Lack of Food: Never True Current Housing: I Have Housing Concerned About Future Housing: No Difficulty Paying Gas/Electric Bills: No Difficulty
[2023-06-20 18:34] LABS: Appearance Urine Turbid (Clear); Bilirubin Urine 3+ (Negative); Blood Urine 3+ (Negative); Color Urine Red (Yellow); Glucose Urine UA Trace mg/dL (Negative); Ketones Urine 1+ mg/dL (Negative); Leukocyte Esterase Ur 3+ LEU/UL (Negative); Nitrate Urine Positive (Negative); Protein Urine 3+ mg/dL (Negative); Specific Grav Ur 1.015 (1.001-1.035)
[2023-06-20 18:42] LABS: RBC Urine >100 /hpf (0-2)
[2023-06-20 18:43] LABS: WBC Urine >75 /hpf (0-3)
[2023-06-20 18:44] LABS: Squamous Epithelial Cell Urine None seen /hpf (Few)
[2023-06-20] MEDS: LIDOCAINE HCL 2% GEL UROJET 10 ML PKG (18:44)
[2023-06-20] MEDS: SODIUM CHLORIDE 0.9% IV 500 ML 999 ML IV CONT (18:44)
[2023-06-20 18:45] LABS: Add Urine Microscopic? YES; Bacteria Urine 3+ /hpf
[2023-06-20 19:01] LABS: Basophils Percent Auto 0.4 % (0.2-1.2); Eosinophils Percent Auto 0.2 % (0-4.4); Hematocrit 31.3 % (42.0-52.0); Hemoglobin 10.2 g/dL (14.0-18.0); Immature Granulocyte Absolute 0.04 K/mm3 (0.00-0.031); Immature Granulocyte Percent A 0.4 % (0-0.5); Lymphocytes Absolute Auto 1.16 K/mm3 (0.9-3.2); Lymphocytes Percent Auto 11.7 % (18.3-44.2); Mean Corpuscular HGB Conc 32.6 g/dl (32-36); Mean Corpuscular Hemoglobin 28.8 pg (26-34); Mean Corpuscular Volume 88.4 fl (80-100); Mean Platelet Volume 10.8 fl (7.4-10.4); Monocytes Absolute Auto 0.9 K/mm3 (0.1-0.6); Monocytes Percent Auto 8.7 % (2.6-8.5); Neutrophils Absolute Auto 7.8 K/mm3 (1.3-6.7); Neutrophils Percent Auto 78.6 % (45.5-73.1); Platelet Count Result 215 k/mm3 (150-375); Red Blood Count 3.54 M/mm3 (4.6-6.20); Red Cell Distribution Width 14.7 % (11.5-14.5); White Blood Count 9.9 K/mm3 (4.5-10.0)
[2023-06-20 19:12] LABS: Alanine Aminotransferase 17 U/L (6-50); Albumin Level 3.4 g/dL (3.5-5.1); Alkaline Phosphatase 66 U/L (38-126); Anion Gap 8 mmol/L (8-16); Aspartate Amino Transferase 20 U/L (17-59); Bilirubin,Total 0.5 mg/dL (0.2-1.3); Blood Urea Nitrogen 22 mg/dL (9-20); Calcium 8.3 mg/dL (8.4-10.2); Carbon Dioxide 22 mmol/L (22-30); Chloride 103 mmol/L (98-107); Estimated CRCL calculation 58 ml/min; Estimated Glomerular Filt Rate > 60; Glucose 107 mg/dL (65-110); Sodium 133 mmol/L (137-145)
--- NOTE | 2023-06-20 19:57 | ECG_ITS ---
Measurements Intervals [place] Rate: 60 P: 41 UT: 158 QRS: 49 QRSD: 91 T: 53 QT: 399 QTc: 400 Interpretive Statements SINUS RHYTHM BASELINE ARTIFACT- I, II, AVR, AVL, AVF NORMAL ECG COMPARED TO ECG 06/20/2023 17:29:32 SINUS RHYTHM NOW PRESENT Electronically Signed On 06-21-2023 6:23:36 CDT by Matt Lamb D.O.
--- NOTE | 2023-06-20 20:30 | PC.NURSE ---
Per EDP MARYAM Xavier orthostatic blood pressures not needed on patient.
--- NOTE | 2023-06-20 21:16 | PC.NURSE ---
FLUSHED PT'S 3 WAY CRUZ CATHETER X 2 WITH ABOUT 45mls SALINE EACH TIME. SOME SMALL CLOTS OBSERVED UPON FLUSHING CRUZ. SPIKE ADJUSTED INTO CBI BAG AND IS NOW PATENTLY IRRIGATING AND DRAINING.
[2023-06-20] MEDS: SODIUM CHLORIDE 0.9% IV 1,000 ML 75 ML IV CONT (22:06)
--- NOTE | 2023-06-20 22:21 | ADMGEN ---
This patient, Serge Denton, was admitted to [facility] Surg Room 322-02. Patient/family oriented to hospital policies and general routines including ID bracelet, bed and alarms, visiting hours, pain management, procedures, bathroom and other care routines, personal items, smoking policy, room service/diet, and visiting hours. Information on how to activate the Rapid Response Team has been discussed. Patient/Family are encouraged to report perceived risks to care and to ask questions if they do not understand what they are told or what they should do.
--- NOTE | 2023-06-20 22:49 | PM.IMHP ---
H&P: HPI History of Present Illness Date/Time: 06/20/23 22:49 Chief Complaint: patient came into the ER for evaluation as he expedient Blood in urine while using straight cath Narrative: He is a very pleasant gentleman who underwent prostate surgery on 05/24/2023. Postop he has been doing well. He uses self catheterization couple of times during the day as needed for urinary retention. He used his straight cath this morning and started seeing blood in the urine which persisted. He also started feeling dizzy and lightheaded which caused him to have a fall due to weakness but he did not hit his head or lose consciousness. He got concerned and was brought to the ED for evaluation. He was started on CBI, Urology was consulted and he is being placed in observation for further urological evaluation and workup. Review of Systems Review of Systems: he denies any chest pain, palpitations, fever rigor chills, nausea vomiting are loss of consciousness. All systems reviewed & are unremarkable except as noted in HPI and below PMFSH Past Medical History Medical History Depression HLD (hyperlipidemia) Hypogonadism Family History Family History Father Patient's father is in good health Mother No family history of cerebrovascular accident (CVA) Family history of Alzheimer's disease Other Family history of alcoholism Social History Social History Social History: Patient exercises 4-5 times per week. Smoking packs per day: 2 Smoking cigarettes per day: 40.0 Years smoked: 20 Smoking pack-years: 40.00 Smoking status: Former smoker Tobacco type: cigarettes Second hand tobacco smoke exposure: No Smoking end date: 10/03/89 Alcohol intake: never Substance use: never Substance use type: does not use Lack of Transportation: No Lack of Food: Never True Current Housing: I Have Housing Concerned About Future Housing: No Difficulty Paying Gas/Electric Bills: No Difficulty Paying for Meds: No Currently Unemployed: No Education: Master's Degree or Higher Difficulty w/ Childcare or Family Care: No Living arrangements: with family Additional living arrangements comments: Occupation/Education: occupation 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 Sexual Orientation (if Verbalized by the Patient): Straight or Heterosexual Spiritual care concerns: No Meds Home Medications and Allergies Home Medications Medication Instructions Recorded Confirmed Type aspirin 81 mg tablet,delayed 81 mg PO DAILY 05/11/21 06/20/23 History release (Adult Low Dose Aspirin) atorvastatin 80 mg tablet 80 mg PO HS #30 tabs 06/02/21 06/20/23 Rx hydroxyzine HCl 50 mg tablet 25 mg PO DAILY PRN Anxiety 06/30/21 06/20/23 History metoprolol succinate 25 mg 25 mg PO DAILY 06/30/21 06/20/23 History tablet,extended release 24 hr nitroglycerin 0.4 mg sublingual 0.4 mg sublingual Q5-15M PRN Chest 06/30/21 06/20/23 History tablet Pain clopidogrel 75 mg tablet 75 mg PO DAILY 03/21/23 06/20/23 History tamsulosin 0.4 mg capsule 0.4 mg PO DAILY 03/21/23 06/20/23 History venlafaxine 150 mg 150 mg PO QAM 03/21/23 06/20/23 History capsule,extended release 24 hr (Effexor XR) Allergies Allergy/AdvReac Type Severity Reaction Status Date / Time No Known Allergies Allergy Verified 06/20/23 16:50 Vital Signs Vital Signs - 24 hr 06/20/23 16:50 06/20/23 17:50 06/20/23 18:43 Temperature 37.1 C Pulse Rate 68 60 Respiratory Rate 20 16 18 Blood Pressure 97/59 L 99/59 L 104/60 Pulse Oximetry 100 99 Oxygen Delivery Room Air Room Air 06/20/23 19:34 06/20/23 20:11 06/20/23 21:42 Temperature 37.1 C 36.9 C Pulse Rate 90 60 68 Respiratory Rate 15
[2023-06-21] VITALS (14 sets, daily range): BP systolic 100–138; BP diastolic 38–83; PULSE 67–103; RESP 12–16; TEMP 36.1–37.9; O2SAT 95–100
[2023-06-21 06:31] LABS: Basophils Absolute Auto 0.1 K/mm3 (0.0-0.1); Basophils Percent Auto 0.5 % (0.2-1.2); Eosinophils Percent Auto 0.3 % (0-4.4); Hematocrit 26.6 % (42.0-52.0); Hemoglobin 8.6 g/dL (14.0-18.0); Immature Granulocyte Absolute 0.05 K/mm3 (0.00-0.031); Immature Granulocyte Percent A 0.5 % (0-0.5); Lymphocytes Absolute Auto 1.91 K/mm3 (0.9-3.2); Lymphocytes Percent Auto 20.7 % (18.3-44.2); Mean Corpuscular HGB Conc 32.3 g/dl (32-36); Mean Corpuscular Hemoglobin 28.4 pg (26-34); Mean Corpuscular Volume 87.8 fl (80-100); Mean Platelet Volume 10.7 fl (7.4-10.4); Monocytes Absolute Auto 0.9 K/mm3 (0.1-0.6); Monocytes Percent Auto 9.3 % (2.6-8.5); Neutrophils Absolute Auto 6.3 K/mm3 (1.3-6.7); Neutrophils Percent Auto 68.7 % (45.5-73.1); Platelet Count Result 205 k/mm3 (150-375); Red Blood Count 3.03 M/mm3 (4.6-6.20); Red Cell Distribution Width 14.9 % (11.5-14.5); White Blood Count 9.2 K/mm3 (4.5-10.0)
[2023-06-21 06:43] LABS: Anion Gap 4 mmol/L (8-16); Blood Urea Nitrogen 19 mg/dL (9-20); Calcium 7.8 mg/dL (8.4-10.2); Carbon Dioxide 23 mmol/L (22-30); Chloride 110 mmol/L (98-107); Estimated CRCL calculation 66 ml/min; Estimated Glomerular Filt Rate > 60; Glucose 127 mg/dL (65-110); Magnesium 2.1 mg/dL (1.6-2.3); Phosphorus 3.8 mg/dL (2.5-4.5); Potassium 4.1 mmol/L (3.4-5.0); Sodium 137 mmol/L (137-145)
--- NOTE | 2023-06-21 10:37 | PM.IMPN ---
Progress Note: A&P Assessment and Plan (1) Hematuria: Qualifiers: Hematuria type: gross Qualified Code(s): R31.0 - Gross hematuria Code(s): R31.9 - Hematuria, unspecified Status: Acute Assessment and Plan: On CBI pending Urology consult (2) Acute UTI: Code(s): N39.0 - Urinary tract infection, site not specified Status: Acute Assessment and Plan: On Rocephin, culture pending (3) Anemia: Qualifiers: Anemia type: unspecified type Qualified Code(s): D64.9 - Anemia, unspecified Code(s): D64.9 - Anemia, unspecified Status: Acute Assessment and Plan: Monitor daily, moderate drop from 12.9 05/2023 to 8.6 today. (4) BPH (benign prostatic hyperplasia): Qualifiers: Lower urinary tract symptom presence: symptoms present Lower urinary tract symptom detail: urinary frequency Qualified Code(s): N40.1 - Benign prostatic hyperplasia with lower urinary tract symptoms; R35.0 - Frequency of micturition Code(s): N40.0 - Benign prostatic hyperplasia without lower urinary tract symptoms Status: Acute Assessment and Plan: s/p TURP, now with bladder hematoma after self straight caths Plan Continue with CBI until outflow is clear Urology consult pending Hold off on aspirin and NSAIDs Patient started on IV ceftriaxone by the ED physician for possible UTI which we will continue with the floor Continue patient with the gentle IV hydration with normal saline at 75 cc/hour Strict I's and O's Time Spent With Patient Time with patient: 25 - 35 minutes Subjective Date/time seen: 06/21/23 10:37 Interval history: Patient underwent TURP procedure end of May was doing well, self caths for urinary retention. Yesterday patient did a self catheterization and had hematuria. Patient admitted for urinary tract infection with hematuria. Started on CBI. Ultrasound shows hematoma in the bladder. Pending urology workup and plan. Review of Systems Review of Systems: he denies any chest pain, palpitations, fever rigor chills, nausea vomiting are loss of consciousness. All systems reviewed & are unremarkable except as noted in HPI and below Exam Narrative: PHYSICAL EXAMINATION: General physical exam: Patient appears tired and fatigued, no acute distress, well-nourished Head/eyes: Atraumatic, EOMI, PERRLA ENT: Moist mucous membranes, nasal passages clear Neck: Supple, full range of motion, trachea midline CVS: S1 + S2 normal, regular rate and rhythm, no murmurs Respiratory: Bilaterally clear to auscultation, symmetric chest expansion, no distress Abdomen: Soft, non-tender, bowel sounds positive, no organomegaly Urology: CBI in place draining well, no CVA tenderness Extremities: No clubbing, no cyanosis, no edema, no calf tenderness Musculoskeletal: Moves all, adequate range of motion, no muscle spasms Skin: Warm, dry, no jaundice, no cyanosis Neurological: Awake, alert, oriented x 3, cranial nerves II-XII intact, no focal neurological deficits Psychiatric: Normal mood, normal affect Objective Data Vital Signs Vital Signs: Vital Signs - 24 hr 06/20/23 16:50 06/20/23 17:50 06/20/23 18:43 Temperature 37.1 C Pulse Rate 68 60 Respiratory Rate 20 16 18 Blood Pressure 97/59 L 99/59 L 104/60 Pulse Oximetry 100 99 Oxygen Delivery Room Air Room Air 06/20/23 19:34 06/20/23 20:11 06/20/23 21:42 Temperature 37.1 C 36.9 C Pulse Rate 90 60 68 Respiratory Rate 15 12 17 Blood Pressure 111/64 98/55 L 106/61 Pulse Oximetry 99 100 99 Oxygen Delivery 06/20/23 22:22 06/20/23 23:50 06/21/23 04:00 Temperature 36.4 C 36.5 C 36.3 C L Pulse Rate 66 70 67 Respiratory Rate 13 13 14 Blood Pressure 98/59 L 115/55 L 103/57 L Pulse Oximetry 100 98 99 Oxygen Delivery 06/21/23 08:00 Temperature 36.1 C L Pulse Rate 103 H Respiratory Rate 16 Blood Pressure 138/83 Pulse Oximetry 100 Oxygen Delivery Inta
[2023-06-21] MEDS: TAMSULOSIN HCL 0.4 MG CAPSULE PO (10:54)
[2023-06-21] MEDS: VENLAFAXINE HCL XR 75 MG CAP.ER.24H 150 MG PO (10:54)
[2023-06-21] MEDS: METOPROLOL SUCCINATE EXT REL 25 MG TABCR PO (10:54)
--- NOTE | 2023-06-21 13:28 | WPDURCON ---
Assessment and Plan Assessment and plan (1) Hematuria: Qualifiers: Hematuria type: gross Qualified Code(s): R31.0 - Gross hematuria Code(s): R31.9 - Hematuria, unspecified Status: Acute Assessment and Plan: Irrigated with 60cc syringe with >350cc of NS and I was unable to remove any clot. Urine didn't clear with irrigation. Bladder is not draining CBI drainage d/t clot blockage. Patient to go for Cystoscopy with clot evacuation in the OR with Dr. Brown today. Keep NPO, obtain consent. (2) Acute UTI: Code(s): N39.0 - Urinary tract infection, site not specified Status: Acute Assessment and Plan: Continue Ceftriaxone, tailor to culture results. (3) Clot retention of urine: Code(s): R33.8 - Other retention of urine Status: Acute Urology Consult Note HPI Date Seen: 06/21/23 Time Seen: 13:00 Requesting Physician: Graham Nunez MD Primary Care Provider: Hill Valentino MD Consult Narrative Reason for consult: Gross Hematuria/Clot Retention Narrative: Serge Denton is a 67 year old male who is a patient of Dr. Brown that does CIC 2x/day and urinates on his own d/t BPH. He has a history of a TURP as well. He states he catheterized early yesterday morning and noticed gross hematuria and home that worsened brining him into the ER last night. He was found to have clots in his bladder on US, he is tachycardic, WBC is 9.2, creatine 1.20, UA that was positive and a urine culture that is pending. His clopidogrel is being held. A [address] way calderon was placed and CBI was started. His catheter is not draining well and urine is dark red, draining to gravity. He denies flank pain, nausea, fever, dysuria or frequency prior to this episode. He does c/o suprapubic pain. Review of Systems Cardiovascular: Cardiovascular: Denies chest pain Respiratory: Respiratory: Reports no additional respiratory complaints Gastrointestinal: Gastrointestinal: Reports abdominal pain, Denies nausea and Denies vomiting Genitourinary: Genitourinary: Reports hematuria, Denies dysuria, Denies flank pain, Denies urinary frequency, Reports urinary hesitancy, Denies urinary incontinence and Denies urinary urgency [facility] Past Medical History Medical History Depression HLD (hyperlipidemia) Hypogonadism Family History Family History Father Patient's father is in good health Mother No family history of cerebrovascular accident (CVA) Family history of Alzheimer's disease Other Family history of alcoholism Social History Social History Social History: Patient exercises 4-5 times per week. Smoking packs per day: 2 Smoking cigarettes per day: 40.0 Years smoked: 20 Smoking pack-years: 40.00 Smoking status: Former smoker Tobacco type: cigarettes Second hand tobacco smoke exposure: No Smoking end date: 10/03/89 Alcohol intake: never Substance use: never Substance use type: does not use Lack of Transportation: No Lack of Food: Never True Current Housing: I Have Housing Concerned About Future Housing: No Difficulty Paying Gas/Electric Bills: No Difficulty Paying for Meds: No Currently Unemployed: No Education: Master's Degree or Higher Difficulty w/ Childcare or Family Care: No Living arrangements: with family Additional living arrangements comments: Occupation/Education: occupation Additional occupation/education comments: Admin for [employer] Gender identity (if verbalized by the patient): Female Sexual Orientation (if Verbalized by the Patient): Straight or Heterosexual Spiritual care concerns: No Meds Home Medications and Allergies Home Medications Medication Instructions Recorded Confirmed Type aspirin 81 mg tablet,delayed 81 mg PO DA
--- NOTE | 2023-06-21 14:24 | WPDHPUPDATE1 ---
History and Physical Update Update Date/Time: 06/21/23 14:24 History and Physical has been reviewed, including an updated exam of the patient. There are NO changes in the patient's condition. Risks, benefits, and alternatives have been discussed and questions answered. Patient agrees to proceed with procedure. Proceed with cysto with clot evacuation
[2023-06-21] MEDS: LACTATED RINGERS 1,000 ML 30 ML IV CONT (14:30)
--- NOTE | 2023-06-21 14:43 | WPDANESEPPF ---
Anes - Initial Pre Proc Eval Procedure: Operation Date: 06/21/23 16:45 Proposed Procedures p Cystoscopy, Evacuation Bladder Clots - Blaine Brown MD Date/Time: 06/21/23 14:43 Surgeon: Graham Nunez MD Pre Op Diagnosis: Hematuria/Anemia Patient Data Age: 67 Gender: M Height: 1.8 m Weight: 98.8 kg Last Vital Signs Temp 36.5 C 06/21/23 12:00 Pulse 68 06/21/23 12:00 Resp 16 06/21/23 12:00 BP 107/57 L 06/21/23 12:00 Pulse Ox 98 06/21/23 12:00 O2 Del Method Room Air 06/21/23 08:00 Allergies Allergy/AdvReac Type Severity Reaction Status Date / Time No Known Allergies Allergy Verified 06/20/23 16:50 Home Medications Medication Instructions Recorded Confirmed Type aspirin 81 mg tablet,delayed 81 mg PO DAILY 05/11/21 06/20/23 History release (Adult Low Dose Aspirin) atorvastatin 80 mg tablet 80 mg PO HS #30 tabs 06/02/21 06/20/23 Rx hydroxyzine HCl 50 mg tablet 25 mg PO DAILY PRN Anxiety 06/30/21 06/20/23 History metoprolol succinate 25 mg 25 mg PO DAILY 06/30/21 06/20/23 History tablet,extended release 24 hr nitroglycerin 0.4 mg sublingual 0.4 mg sublingual Q5-15M PRN Chest 06/30/21 06/20/23 History tablet Pain clopidogrel 75 mg tablet 75 mg PO DAILY 03/21/23 06/20/23 History tamsulosin 0.4 mg capsule 0.4 mg PO DAILY 03/21/23 06/20/23 History venlafaxine 150 mg 150 mg PO QAM 03/21/23 06/20/23 History capsule,extended release 24 hr (Effexor XR) Laboratory Tests 06/20/23 06/20/23 06/21/23 18:03 18:39 06:09 WBC 9.9 K/mm3 9.2 K/mm3 (4.5-10.0) (4.5-10.0) RBC 3.54 L M/mm3 3.03 L M/mm3 (4.6-6.20) (4.6-6.20) Hgb 10.2 L g/dL 8.6 L g/dL (14.0-18.0) (14.0-18.0) Hct 31.3 L % 26.6 L % (42.0-52.0) (42.0-52.0) MCV 88.4 fl 87.8 fl (80-100) (80-100) MCH 28.8 pg 28.4 pg (26-34) (26-34) MCHC 32.6 g/dl 32.3 g/dl (32-36) (32-36) RDW 14.7 H % 14.9 H % (11.5-14.5) (11.5-14.5) Plt Count 215 k/mm3 205 k/mm3 (150-375) (150-375) MPV 10.8 H fl 10.7 H fl (7.4-10.4) (7.4-10.4) Immature Gran % (Auto) 0.4 % 0.5 % (0-0.5) (0-0.5) Neut % (Auto) 78.6 H % 68.7 % (45.5-73.1) (45.5-73.1) Lymph % (Auto) 11.7 L % 20.7 % (18.3-44.2) (18.3-44.2) [place] % (Auto) 8.7 H % 9.3 H % (2.6-8.5) (2.6-8.5) Eos % (Auto) 0.2 % 0.3 % (0-4.4) (0-4.4) Baso % (Auto) 0.4 % 0.5 % (0.2-1.2) (0.2-1.2) Lymph # (Auto) 1.16 K/mm3 1.91 K/mm3 (0.9-3.2) (0.9-3.2) [place] # (Auto) 0.9 H K/mm3 0.9 H K/mm3 (0.1-0.6) (0.1-0.6) Eos # (Auto) 0.0 K/mm3 0.0 K/mm3 (0-0.3) (0-0.3) Baso # (Auto) 0.0 K/mm3 0.1 K/mm3 (0.0-0.1) (0.0-0.1) Abs Immat Gran (auto) 0.04 H K/mm3 0.05 H K/mm3 (0.00-0.031) (0.00-0.031) Absolute Neuts (auto) 7.8 H K/mm3 6.3 K/mm3 (1.3-6.7) (1.3-6.7) Absolute Nucleated RBC 0.0 K/mm3 0.0 K/mm3 (0.0-0.012) (0.0-0.012) Nucleated RBC % 0.0 % 0.0 % (0.0-0.2) (0.0-0.2) Sodium 133 L mmol/L 137 mmol/L (137-145) (137-145) Potassium 4.0 mmol/L 4.1 mmol/L (3.4-5.0) (3.4-5.0) Chloride 103 mmol/L 110 H mmol/L (98-107) (98-107) Carbon Dioxide 22 mmol/L 23 mmol/L (22-30) (22-30) Anion Gap 8 mmol/L 4 L mmol/L (8-16) (8-16) BUN 22 H mg/dL 19 mg/dL (9-20) (9-20) Creatinine 1.20 mg/dL 1.20 mg/dL (0.7-1.3) (0.7-1.3) Estim Creat Clear Calc 58 ml/min 66 ml/min Estimated GFR > 60 > 60 (59 - ) (59 - ) Glucose 107 mg/dL 127 H mg/dL (65-110) (65-110) Calcium 8.3 L mg/dL 7.8 L mg/dL (8.4-10.2) (8.4-10.2) Phosphorus 3.8 mg/dL (2.5-4.5) Magnesium 2.1 mg/dL (1.6-2.3) Total Bilirubin 0.5 mg/dL (0.2-1.3) AST 20 U/L (17-59) ALT 17 U/L (6-50) Alkaline Phosphatase 66 U/L (38-126)
[2023-06-21] MEDS: LIDOCAINE HCL 2% GEL UROJET 10 ML PKG MUCOUS MEM (16:31)
--- NOTE | 2023-06-21 16:35 | SUR.OPER ---
500ML CLOT IN BLADDER
--- NOTE | 2023-06-21 16:37 | W.PM.PROC2 ---
Procedure Note - Detailed Date of Procedure 06/21/23 Pre-op Diagnosis Hematuria/Anemia Post-op Diagnosis Same Procedure Performed Cystoscopy with clot evacuation and fulguration, complex Brown catheter placement Surgeon Blaine Brown MD Anesthesia General Description of Procedure Patient is taken to the operative suite correctly identified. Once anesthesia was obtained was placed in dorsal lithotomy position and prepped and draped usual sterile fashion. Twenty-two Hungarian scope was inserted in the bladder. Approximately 500 cc of clot was evacuated. Reinspection reveals no active bleeding in the bladder. Along the right prostatic fossa there was a clot which was then scraped off. I used a rollerball to fulgurate the prostatic fossa. There appeared to be good hemostasis at termination procedure. He does have somewhat of a slight elevation at the bladder neck. This required a catheter guide to place a [address] The balloon was inflated with 15 cc of sterile water. This was connected to continuous bladder irrigation. Patient is taken recovery stable condition. Brown catheter will remain in until Tuesday. This completes dictation on this patient please send a copy of this op note to my office Estimated Blood Loss 0 Drains Yes Packing No Pathology None sent Complications No immediate complications Condition Stable Disposition PACU
[2023-06-21 18:43] LABS: Hematocrit 24.5 % (42.0-52.0); Hemoglobin 7.7 g/dL (14.0-18.0)
[2023-06-21] MEDS: SODIUM CHLORIDE 0.9% IV 1,000 ML 75 ML IV CONT (19:29)
[2023-06-21] MEDS: ATORVASTATIN 40 MG TABLET 80 MG PO (20:19)
[2023-06-22 00:33] VITALS: BP 108/58; PULSE 60; RESP 12; TEMP 36.8; O2SAT 96
[2023-06-22 04:40] VITALS: PULSE 59; RESP 13; TEMP 36.8; O2SAT 96
[2023-06-22 07:08] LABS: Basophils Percent Auto 0.4 % (0.2-1.2); Hematocrit 23.7 % (42.0-52.0); Hemoglobin 7.3 g/dL (14.0-18.0); Immature Granulocyte Absolute 0.04 K/mm3 (0.00-0.031); Immature Granulocyte Percent A 0.5 % (0-0.5); Lymphocytes Absolute Auto 1.52 K/mm3 (0.9-3.2); Lymphocytes Percent Auto 17.8 % (18.3-44.2); Mean Corpuscular HGB Conc 30.8 g/dl (32-36); Mean Corpuscular Volume 90.8 fl (80-100); Mean Platelet Volume 10.4 fl (7.4-10.4); Monocytes Absolute Auto 0.5 K/mm3 (0.1-0.6); Monocytes Percent Auto 6.3 % (2.6-8.5); Neutrophils Absolute Auto 6.4 K/mm3 (1.3-6.7); Platelet Count Result 157 k/mm3 (150-375); Red Blood Count 2.61 M/mm3 (4.6-6.20); White Blood Count 8.5 K/mm3 (4.5-10.0)
[2023-06-22 07:48] LABS: Anion Gap 4 mmol/L (8-16); Blood Urea Nitrogen 13 mg/dL (9-20); Calcium 7.7 mg/dL (8.4-10.2); Carbon Dioxide 25 mmol/L (22-30); Chloride 110 mmol/L (98-107); Estimated CRCL calculation 86 ml/min; Estimated Glomerular Filt Rate > 60; Glucose 115 mg/dL (65-110); Potassium 3.9 mmol/L (3.4-5.0); Sodium 139 mmol/L (137-145)
[2023-06-22 09:02] VITALS: BP 107/52; PULSE 64; RESP 16; TEMP 36.1; O2SAT 98
[2023-06-22] MEDS: VENLAFAXINE HCL XR 75 MG CAP.ER.24H 150 MG PO (09:06)
[2023-06-22] MEDS: TAMSULOSIN HCL 0.4 MG CAPSULE PO (09:06)
[2023-06-22 09:08] VITALS: PULSE 59
--- NOTE | 2023-06-22 09:21 | PM.IMPN ---
Progress Note: A&P Assessment and Plan (1) Hematuria: Qualifiers: Hematuria type: gross Qualified Code(s): R31.0 - Gross hematuria Code(s): R31.9 - Hematuria, unspecified Status: Acute Assessment and Plan: Hematuria s/p prostate surgery 2 weeks ago CBI stopped. S/P cystoscopy with urology for clot evacuation. Calderon catheter with clear yellow urine today. Hgb 7.3 (2) Acute UTI: Code(s): N39.0 - Urinary tract infection, site not specified Status: Acute Assessment and Plan: U/A positive for UTI Urine culture with gram negative bacilli--growing klebsiella oxytoca. Can switch to PO Augmentin for 10 days. (3) Anemia: Qualifiers: Anemia type: unspecified type Qualified Code(s): D64.9 - Anemia, unspecified Code(s): D64.9 - Anemia, unspecified Status: Acute Assessment and Plan: Monitor daily Moderate drop from 12.9 05/2023 to 8.6-->7.3. Transfuse for Hgb less than 7.0 (4) BPH (benign prostatic hyperplasia): Qualifiers: Lower urinary tract symptom detail: urinary frequency Lower urinary tract symptom presence: symptoms present Qualified Code(s): N40.1 - Benign prostatic hyperplasia with lower urinary tract symptoms; R35.0 - Frequency of micturition Code(s): N40.0 - Benign prostatic hyperplasia without lower urinary tract symptoms Status: Acute Assessment and Plan: s/p TURP, now with bladder hematoma after self straight caths S/P cysto with Urology on 06/[address] catheter placed and to remain until Tuesday Plan 3-way calderon until Tuesday. Will need removed at Urology office. 10 days of PO Augmentin. Monitor blood pressures and CBC for downtrending Hgb. May need a transfusion prior to d/c. Have patient walk in halls to make sure he isn't having dizziness or weakness like he was having at home prior to his fall. Possibly d/c 06/23 Subjective Date/time seen: 06/22/23 09:21 Interval history: HPI obtained from the chart, He is a very pleasant gentleman who underwent prostate surgery on 05/24/2023.? Postop he has been doing well.? He uses self catheterization couple of times during the day as needed for urinary retention.? He used his straight cath this morning and started seeing blood in the urine which persisted.? He also started feeling dizzy and lightheaded which caused him to have a fall due to weakness but he did not hit his head or lose consciousness.? He? got concerned and was brought to the ED for evaluation.? He was started on CBI, Urology was consulted and he is being placed in observation for further urological evaluation and workup. Interval history 06/22: Patient is seen at the bedside with his present. He says he is feeling better today and his says he looks better compared to yesterday. His labs and vitals have been reviewed. Initially I was going to keep him today until sensitivities resulted. He did have a fall at home and his blood pressures continue to be soft. I want keep him another night for monitoring of blood pressure, repeat hgb in the morning, and have him walk the halls to see if he gets dizzy. Assuming his labs are stable tomorrow and he is not symptomatic, I plan to d/c home with calderon and 10 days of PO antibiotics. Review of Systems Review of Systems: All systems reviewed & are unremarkable except as noted in HPI and below Exam Narrative: General: well appearing, well developed, well nourished, appears stated age. HEENT: normocephalic, atraumatic. Mucous membranes moist. EOMI, PERRLA, bilateral sclera anicteric, no conjunctival injection. Neck supple without JVD, lymphadenopathy, or bruit. Respiratory: clear to auscultation bilaterally. No rales/rhonic/wheezes. Cardiovascular: Regular rate and rhythm, normal S1-S2 upon auscultation. No murmurs, rubs, or clicks. PMI is nondisplaced, capillary re-fill less than 3 second. Abdomen: Soft, f
[2023-06-22] MEDS: SODIUM CHLORIDE 0.9% IV 1,000 ML 75 ML IV CONT (09:57)
--- NOTE | 2023-06-22 10:20 | P.PNAN_ITS ---
Anes - Prog Note Post-Op Date/Time: 06/22/23 10:20 Cardiovascular status: normal Respiratory status: normal Airway patency: baseline Mental status: baseline Post-Op hydration status: normal Vital Signs: Last Vital Signs Temp 96.9 F L 06/22/23 09:02 Pulse 59 L 06/22/23 09:08 Resp 16 06/22/23 09:02 BP 107/52 L 06/22/23 09:02 Pulse Ox 98 06/22/23 09:02 O2 Del Method Room Air 06/22/23 08:00 O2 Flow Rate 6 06/21/23 17:00 Pain Score (VAS): 0 I/O: Intake & Output 06/21/23 06/22/23 06/22/23 23:59 07:59 15:59 Intake Total 238 663 7160 Output Total 2200 Balance -7330 066 3821 Laboratory Tests 06/22/23 06:57 06/22/23 06:57 06/21/23 06/22/23 18:37 06:57 WBC 8.5 RBC 2.61 L Hgb 7.7 L 7.3 L Hct 24.5 L 23.7 L MCV 90.8 MCH 28.0 MCHC 30.8 L RDW 15.0 H Plt Count 157 MPV 10.4 Immature Gran % (Auto) 0.5 Neut % (Auto) 75.0 H Lymph % (Auto) 17.8 L [place] % (Auto) 6.3 Eos % (Auto) 0.0 Baso % (Auto) 0.4 Lymph # (Auto) 1.52 [place] # (Auto) 0.5 Eos # (Auto) 0.0 Baso # (Auto) 0.0 Abs Immat Gran (auto) 0.04 H Absolute Neuts (auto) 6.4 Absolute Nucleated RBC 0.0 Nucleated RBC % 0.0 Sodium 139 Potassium 3.9 Chloride 110 H Carbon Dioxide 25 Anion Gap 4 L BUN 13 D Creatinine 0.90 Estim Creat Clear Calc 86 Estimated GFR > 60 Glucose 115 H Calcium 7.7 L Microbiology 06/20/23 18:03 Urine Catheterized Urine Culture - Preliminary Gram negative bacilli isolated Post-procedural complaints: none Patient Feedback: Patient satisfied with anesthetic care.
--- NOTE | 2023-06-22 15:04 | WPDUROPN2 ---
Progress Note: A&P Assessment and Plan (1) Clot retention of urine: Code(s): R33.8 - Other retention of urine Status: Acute Assessment and Plan: Resolved, catheter draining to gravity. (2) Hematuria: Qualifiers: Hematuria type: gross Qualified Code(s): R31.0 - Gross hematuria Code(s): R31.9 - Hematuria, unspecified Status: Acute Assessment and Plan: Resolved, CBI turned off. Encourage Activity in the room to assess for bleeding. Keep calderon in until Tuesday. Hold anticoagulants until Tuesday after calderon is removed if possible. (3) Acute UTI: Code(s): N39.0 - Urinary tract infection, site not specified Status: Acute Assessment and Plan: Culture positive for Klebsiella, I recommend 10 days of oral antibiotics s/p discharge. Likely contributing to gross hematuria along with anticoagulant use. (4) BPH (benign prostatic hyperplasia): Qualifiers: Lower urinary tract symptom presence: symptoms present Lower urinary tract symptom detail: urinary frequency Qualified Code(s): N40.1 - Benign prostatic hyperplasia with lower urinary tract symptoms; R35.0 - Frequency of micturition Code(s): N40.0 - Benign prostatic hyperplasia without lower urinary tract symptoms Status: Acute Assessment and Plan: Will resume self catheterization next week after calderon removal. We will do a re-teaching to ensure no further injury occurs. Use water based lubricant to do so. Subjective Subjective Date/Time Seen: 06/22/23 15:04 Post Op day: 1 Interval history: S/P Cystoscopy with clot evacuation and fulguration, complex Calderon catheter placement. Urine clear this morning on slow CBI. CBI stopped, I encouraged the patient to get up and walk around the room to assess for bleeding. He will keep his calderon in until Tuesday and we will remove it in office. He can then be re-taught self catheterization. He notes catheterizing without lubrication at home. Urine culture is positive growing Klebsiella, continues on Ceftriaxone, anti coagulants are being held. The patient reports no pain, tolerating diet well. H&H is 7 and 23 today. Review of Systems Cardiovascular: Cardiovascular: Denies chest pain Respiratory: Respiratory: Reports no additional respiratory complaints Gastrointestinal: Gastrointestinal: Denies abdominal pain, Denies nausea and Denies vomiting Genitourinary: Genitourinary: Denies hematuria, Denies dysuria, Denies flank pain, Denies testicular pain, Denies urinary frequency, Denies urinary hesitancy, Denies urinary incontinence and Denies urinary urgency Exam Const: General: cooperative and comfortable Resp: Effort & Inspection: normal respiratory effort Cardio: Rate: bradycardic GI: GI Palp: Yes Soft to palpation and No Tenderness to palpation present (GI) : General: Yes no CVA tenderness Urinary Catheter: Urinary Catheter: patent and draining and urine clear Extrem: Right lower extremity: no edema Left lower extremity: no edema Objective Data Vital Signs Vital Signs: Vital Signs - 24 hr 06/21/23 16:48 06/21/23 17:00 06/21/23 17:15 Temperature 100.3 F H Pulse Rate 73 73 75 Respiratory Rate 14 16 16 Blood Pressure 104/53 L 105/51 L 105/57 L Pulse Oximetry 100 100 99 Oxygen Delivery Simple Face Mask Simple Face Mask Room Air Oxygen Flow Rate 6 6 06/21/23 17:30 06/21/23 17:45 06/21/23 18:34 Temperature 98.4 F 98.0 F Pulse Rate 78 76 70 Respiratory Rate 14 14 16 Blood Pressure 106/55 L 102/55 L 100/38 L Pulse Oximetry 100 95 96 Oxygen Delivery Room Air Room Air Oxygen Flow Rate 06/21/23 19:00 06/21/23 19:37 06/21/23 20:40 Temperature 98.4 F 99.5 F 99.5 F Pulse Rate 69 72 72 Respiratory Rate 14 13 12 Blood Pressure 104/54 L 106/42 L 109/51 L Pulse Oximetry 97 98 98 Oxygen Delivery Oxygen Flow Rate 06/21/23 20:00 06/22/23 00:33 06/22/23 04:40 Temperature 98.3 F 98.2 F Pulse R
[2023-06-22] MEDS: AMOXICILLIN/CLAVULANATE K 875-125 MG TAB 1 TABLET PO (20:39)
[2023-06-22] MEDS: ATORVASTATIN 40 MG TABLET 80 MG PO (20:39)
[2023-06-22 21:58] VITALS: BP 102/60; PULSE 71; RESP 20; TEMP 37.6; O2SAT 98
[2023-06-22 23:38] VITALS: BP 112/52; PULSE 69; RESP 18; TEMP 37.4; O2SAT 99
[2023-06-22] MEDS: MAG HYDROX/AL HYDROX/SIMETH 30 ML UDC PO (23:59)
[2023-06-23] VITALS (8 sets, daily range): BP systolic 109–121; BP diastolic 59–65; PULSE 58–66; RESP 14–16; TEMP 37.1–37.4; O2SAT 96–100
[2023-06-23 07:02] LABS: Anion Gap 0 mmol/L (8-16); Blood Urea Nitrogen 11 mg/dL (9-20); Calcium 7.4 mg/dL (8.4-10.2); Carbon Dioxide 28 mmol/L (22-30); Chloride 110 mmol/L (98-107); Estimated CRCL calculation 86 ml/min; Estimated Glomerular Filt Rate > 60; Glucose 125 mg/dL (65-110); Potassium 3.4 mmol/L (3.4-5.0); Sodium 138 mmol/L (137-145)
[2023-06-23 07:06] LABS: Basophils Percent Auto 0.4 % (0.2-1.2); Eosinophils Absolute Auto 0.1 K/mm3 (0-0.3); Eosinophils Percent Auto 0.9 % (0-4.4); Hematocrit 22.3 % (42.0-52.0); Hemoglobin 7.1 g/dL (14.0-18.0); Immature Granulocyte Absolute 0.03 K/mm3 (0.00-0.031); Immature Granulocyte Percent A 0.4 % (0-0.5); Lymphocytes Absolute Auto 2.21 K/mm3 (0.9-3.2); Lymphocytes Percent Auto 31.8 % (18.3-44.2); Mean Corpuscular HGB Conc 31.8 g/dl (32-36); Mean Corpuscular Hemoglobin 28.9 pg (26-34); Mean Corpuscular Volume 90.7 fl (80-100); Mean Platelet Volume 11.1 fl (7.4-10.4); Monocytes Absolute Auto 0.6 K/mm3 (0.1-0.6); Monocytes Percent Auto 9.2 % (2.6-8.5); Neutrophils Percent Auto 57.3 % (45.5-73.1); Platelet Count Result 170 k/mm3 (150-375); Red Blood Count 2.46 M/mm3 (4.6-6.20); Red Cell Distribution Width 14.7 % (11.5-14.5); White Blood Count 6.9 K/mm3 (4.5-10.0)
--- NOTE | 2023-06-23 08:32 | PM.DS ---
DS: Admitting Diagnosis Discharge Date 06/22 Admitting Diagnosis Hematuria, UTI DS: Discharge Diagnosis Discharge Diagnosis (1) Hematuria: Qualifiers: Hematuria type: gross Qualified Code(s): R31.0 - Gross hematuria Code(s): R31.9 - Hematuria, unspecified Status: Acute Assessment and Plan: Hematuria s/p prostate surgery 2 weeks ago On CBI pending Urology consult (2) Acute UTI: Code(s): N39.0 - Urinary tract infection, site not specified Status: Acute Assessment and Plan: On Rocephin Urine culture with gram negative bacilli U/A positive for UTI (3) Anemia: Qualifiers: Anemia type: unspecified type Qualified Code(s): D64.9 - Anemia, unspecified Code(s): D64.9 - Anemia, unspecified Status: Acute Assessment and Plan: Monitor daily Moderate drop from 12.9 05/2023 to 8.6 today (4) BPH (benign prostatic hyperplasia): Qualifiers: Lower urinary tract symptom detail: urinary frequency Lower urinary tract symptom presence: symptoms present Qualified Code(s): N40.1 - Benign prostatic hyperplasia with lower urinary tract symptoms; R35.0 - Frequency of micturition Code(s): N40.0 - Benign prostatic hyperplasia without lower urinary tract symptoms Status: Acute Assessment and Plan: s/p TURP, now with bladder hematoma after self straight caths S/P cysto with Urology on 06/[address] catheter placed and to remain until Tuesday Plan Continue with CBI until outflow is clear Urology consult Hold off on aspirin, Plavix, and NSAIDs Patient started on IV ceftriaxone. Urine cultures show gram negative bacilli, awaiting sensitivities Continue patient with the gentle IV hydration with normal saline at 75 cc/hour Strict I's and O's DS: Summary Hospital Course Hospital Course: HPI obtained from the chart, He is a very pleasant gentleman who underwent prostate surgery on 05/24/2023.? Postop he has been doing well.? He uses self catheterization couple of times during the day as needed for urinary retention.? He used his straight cath this morning and started seeing blood in the urine which persisted.? He also started feeling dizzy and lightheaded which caused him to have a fall due to weakness but he did not hit his head or lose consciousness.? He? got concerned and was brought to the ED for evaluation.? He was started on CBI, Urology was consulted and he is being placed in observation for further urological evaluation and workup. Interval history 06/22: Patient is seen at the bedside with his present. He says he is feeling better today and his says he looks better compared to yesterday. His labs and vitals have been reviewed. Initially I was going to keep him today until sensitivities resulted but they came back this afternoon. He will need 10 days of Augmentin and will need to follow up in the urology office on Tuesday to have his calderon removed. 06/23: Hemoglobin on admission was 10.2, today it is 7.1. Will transfuse him with 1 unit of pRBC this morning and discharge this afternoon. Status at Discharge Cognitive/behavioral status at discharge: A&O x4, pleasant Time Spent with Patient Time attestation: Total time spent providing and/or coordinating discharge services: 45 Exam Narrative: General: well appearing, well developed, well nourished, appears stated age. HEENT: normocephalic, atraumatic. Mucous membranes moist. EOMI, PERRLA, bilateral sclera anicteric, no conjunctival injection. Neck supple without JVD, lymphadenopathy, or bruit. Respiratory: clear to auscultation bilaterally. No rales/rhonic/wheezes. Cardiovascular: Regular rate and rhythm, normal S1-S2 upon auscultation. No murmurs, rubs, or clicks. PMI is nondisplaced, capillary re-fill less than 3 second. Abdomen: Soft, flat, no pulsatile masses, non-distended and non-tender. No rebound, no guarding. No CVA tenderness, n
[2023-06-23] MEDS: AMOXICILLIN/CLAVULANATE K 875-125 MG TAB 1 TABLET PO (08:40)
[2023-06-23] MEDS: TAMSULOSIN HCL 0.4 MG CAPSULE PO (08:40)
[2023-06-23] MEDS: VENLAFAXINE HCL XR 75 MG CAP.ER.24H 150 MG PO (08:40)
[2023-06-23] MEDS: METOPROLOL SUCCINATE EXT REL 25 MG TABCR PO (08:40)
[2023-06-23] MEDS: polyethylene glycoL 3350 17 GM POWD.PACK PO (10:49)
[2023-06-23] MEDS: SENNA/DOCUSATE SODIUM TABLET 1 TAB PO (10:49)
--- NOTE | 2023-06-23 11:15 | PC.NURSE ---
This patient, Serge Denton, was received from [facility] on 06/23/23 at 1115 via to [facility] as Med/Surg overflow. Report has been received from Evelyn RN. Pt. to get transfused 1 unit PRBC's prior to discharge home. Patient/family oriented to unit policies and routines. A&Ox4 on arrival, ambulatory, pleasant and cooperative, denies pain on arrival. Brown catheter in place to leg collection bag. VSS.
[2023-06-23] MEDS: SODIUM CHLORIDE 0.9% IV 250 ML 30 ML IV CONT (11:39)
--- NOTE | 2023-06-23 12:37 | WPDUROPN2 ---
Progress Note: A&P Assessment and Plan (1) Clot retention of urine: Code(s): R33.8 - Other retention of urine Status: Acute Assessment and Plan: Resolved, catheter draining to gravity. Ok to discharge home with calderon, change to leg bag. (2) Hematuria: Qualifiers: Hematuria type: gross Qualified Code(s): R31.0 - Gross hematuria Code(s): R31.9 - Hematuria, unspecified Status: Acute Assessment and Plan: Resolved, CBI off. Keep calderon in until Tuesday. Hold anticoagulants until Tuesday after calderon is removed if possible. (3) Acute UTI: Code(s): N39.0 - Urinary tract infection, site not specified Status: Acute Assessment and Plan: Culture positive for Klebsiella, I recommend 10 days of oral antibiotics s/p discharge. Likely contributing to gross hematuria along with anticoagulant use. (4) BPH (benign prostatic hyperplasia): Qualifiers: Lower urinary tract symptom presence: symptoms present Lower urinary tract symptom detail: urinary frequency Qualified Code(s): N40.1 - Benign prostatic hyperplasia with lower urinary tract symptoms; R35.0 - Frequency of micturition Code(s): N40.0 - Benign prostatic hyperplasia without lower urinary tract symptoms Status: Acute Assessment and Plan: Will resume self catheterization next week after calderon removal. We will do a re-teaching to ensure no further injury occurs. Use water based lubricant to do so. Ok to discharge at anytime when stable. Subjective Subjective Date/Time Seen: 06/23/23 12:37 Post Op day: 2 Interval history: S/P Cystoscopy with clot evacuation and fulguration, complex Calderon catheter placement. Urine clear this morning off CBI since yesterday. He will keep his calderon in until Tuesday and we will remove it in office. He can then be re-taught self catheterization. He notes catheterizing without lubrication at home. Urine culture is positive growing Klebsiella, continues on Ceftriaxone, anti coagulants are being held. The patient reports no pain, tolerating diet well. H&H remains low, the patient is to receive a unit of blood today before discharge. Review of Systems Cardiovascular: Cardiovascular: Denies chest pain Respiratory: Respiratory: Reports no additional respiratory complaints Gastrointestinal: Gastrointestinal: Denies abdominal pain, Denies nausea and Denies vomiting Genitourinary: Genitourinary: Denies hematuria, Denies dysuria, Denies flank pain, Denies testicular pain, Denies urinary frequency, Denies urinary hesitancy, Denies urinary incontinence and Denies urinary urgency Exam Const: General: cooperative and comfortable Resp: Effort & Inspection: normal respiratory effort Cardio: Rate: bradycardic GI: GI Palp: Yes Soft to palpation and No Tenderness to palpation present (GI) : General: Yes no CVA tenderness Urinary Catheter: Urinary Catheter: patent and draining and urine clear Extrem: Right lower extremity: no edema Left lower extremity: no edema Objective Data Vital Signs Vital Signs: Vital Signs - 24 hr 06/22/23 20:00 06/22/23 21:58 06/22/23 23:38 Temperature 99.6 F 99.4 F Pulse Rate 71 69 Respiratory Rate 20 18 Blood Pressure 102/60 112/52 L Pulse Oximetry 98 99 Oxygen Delivery Room Air 06/23/23 06:14 06/23/23 08:40 06/23/23 08:00 Temperature 98.8 F Pulse Rate 66 66 Respiratory Rate 16 Blood Pressure 119/59 L Pulse Oximetry 98 Oxygen Delivery Room Air 06/23/23 12:09 06/23/23 12:24 06/23/23 11:45 Temperature 99.1 F 99 F 99.3 F Pulse Rate 61 58 L 61 Respiratory Rate 14 16 14 Blood Pressure 112/60 121/63 110/62 Pulse Oximetry 96 99 96 Oxygen Delivery Intake/Output Intake/Output: Intake & Output 06/20/23 06/21/23 06/22/23 06/23/23 23:59 23:59 23:59 23:59 Intake Total 7050 35490 3628 1840 Output Total 88159 05002 650 1200 Balance -3050 08293 2978 640 Meds/Results Medica
--- NOTE | 2023-06-23 12:55 | PC.NURSE ---
Griselda Workman APRN here to see pt in [facility]. Per Griselda INDUSTRIAL ENGINEERING TECHNOLOGIST, pt. may discharge home after blood transfusion complete, may resume taking aspirin and Plavix dosing tomorrow. Pt. aware of such.
--- NOTE | 2023-06-23 15:30 | PC.NURSE ---
Call received from Griselda Workman APRN. Clarified discharge medication order change: Hold Plavix and Aspirin dosing until after seen 06/27/23, by urology in follow up appointment. Change made to discharge instructions prior to pt. leaving. Pt. instructed.
== END 2023-06-23 15:40 | disposition home or self-care (01) | DRG 663 ==
LOC: ANHED 20:25 → ANH3MEDSUR 21:51 → ANHCPC 06-23 14:44 → ANH3MEDSUR 06-24 09:56 → ANHCPC 06-24 09:56
PROVIDERS: Nurse Practitioner; Urology; Admitting Provider Family Medicine; Emergency Provider Physician Assistant; PCP Emergency Medicine; Visit Provider Nurse Practitioner Acute Care
PROC: 0TCB8ZZ Extirpation of Matter from Bladder, Via Natural or Artificial Opening Endoscopic (ICD-10-PCS; CPT 52001; principal; 2023-06-21 16:45)
DX: T83.518A Infection and inflammatory reaction due to other urinary catheter, initial encounter (principal); N39.0 Urinary tract infection, site not specified; B96.89 Other specified bacterial agents as the cause of diseases classified elsewhere; R31.0 Gross hematuria; D64.9 Anemia, unspecified; N40.1 Benign prostatic hyperplasia with lower urinary tract symptoms; R35.1 Nocturia; R35.0 Frequency of micturition; R33.8 Other retention of urine; E78.5 Hyperlipidemia, unspecified; I25.10 Atherosclerotic heart disease of native coronary artery without angina pectoris; E66.9 Obesity, unspecified; Z68.30 Body mass index [BMI] 30.0-30.9, adult; Z79.82 Long term (current) use of aspirin; Z87.891 Personal history of nicotine dependence
CPT/HCPCS: 36415; 36430; 71045; 76857; 80048; 80053; 81001; 83735; 84100; 85014; 85018; 85025; 86850; 86900; 86901; 86923; 87077; 87086; 87088; 87186; 93005; 96365; 99285; A9270; G0378; J0696; J1100; J2250; J2405; J2704; J3010; J7030; J7040; J7050; J7120; P9016

== ENCOUNTER 2023-08-10 00:51 | Day surgery (SDC) | payer OTHER, SELFPAY ==
--- NOTE | 2023-08-08 09:44 | SUR.PREOP ---
Patient called regarding upcoming procedure. Message left on patient's voicemail with appointment times, and procedure prep.
[2023-08-10 08:44] VITALS: BP 138/73; PULSE 62; RESP 20; TEMP 36.6; O2SAT 100
[2023-08-10] MEDS: LACTATED RINGERS 1,000 ML 150 ML IV CONT (08:46)
--- NOTE | 2023-08-10 09:31 | WPDANESEPPF ---
Anes - Initial Pre Proc Eval Procedure: Operation Date: 08/10/23 10:00 Proposed Procedures p Screening Colonoscopy - Ras Montero MD Date/Time: 08/10/23 09:31 Surgeon: Ras Montero MD Pre Op Diagnosis: neoplasm screening Patient Data Age: 67 Gender: M Height: 1.8 m Weight: 97.6 kg Last Vital Signs Temp 97.8 F 08/10/23 08:44 Pulse 62 08/10/23 08:44 Resp 20 08/10/23 08:44 BP 138/73 08/10/23 08:44 Pulse Ox 100 08/10/23 08:44 O2 Del Method Room Air 08/10/23 08:44 Allergies Allergy/AdvReac Type Severity Reaction Status Date / Time No Known Allergies Allergy Verified 08/10/23 08:42 Home Medications Medication Instructions Recorded Confirmed Type aspirin 81 mg tablet,delayed 81 mg PO DAILY 05/11/21 08/10/23 History release (Adult Low Dose Aspirin) hydroxyzine HCl 50 mg tablet 25 mg PO DAILY PRN Anxiety 06/30/21 08/10/23 History metoprolol succinate 25 mg 25 mg PO DAILY 06/30/21 08/10/23 History tablet,extended release 24 hr nitroglycerin 0.4 mg sublingual 0.4 mg sublingual Q5-15M PRN Chest 06/30/21 08/10/23 History tablet Pain clopidogrel 75 mg tablet 75 mg PO DAILY 03/21/23 08/10/23 History tamsulosin 0.4 mg capsule 0.4 mg PO DAILY 03/21/23 08/10/23 History venlafaxine 150 mg 150 mg PO QAM 03/21/23 08/10/23 History capsule,extended release 24 hr (Effexor XR) bempedoic acid 180 mg-ezetimibe 10 1 tablet PO DAILY 08/10/23 08/10/23 History mg tablet (Nexlizet) Patient hx anesthesia problems: none Family hx anesthesia problems: none Results Review: All pre-operative results and documents have been reviewed as part of the pre-operative evaluation. [facility] Past Medical History Medical History Depression HLD (hyperlipidemia) Hypogonadism Surgical History Surgical History History of bladder surgery Hx of cystoscopy Family History Family History Father Patient's father is in good health Mother No family history of cerebrovascular accident (CVA) Family history of Alzheimer's disease Other Family history of alcoholism Social History Social History Social History: Patient exercises 4-5 times per week. Smoking packs per day: 2 Smoking cigarettes per day: 40.0 Years smoked: 20 Smoking pack-years: 40.00 Smoking status: Former smoker Tobacco type: cigarettes Second hand tobacco smoke exposure: No Smoking end date: 10/03/89 Alcohol intake: former Substance use: former Substance use type: does not use Lack of Transportation: No Lack of Food: Never True Current Housing: I Have Housing Concerned About Future Housing: No Difficulty Paying Gas/Electric Bills: No Difficulty Paying for Meds: No Currently Unemployed: No Education: Master's Degree or Higher Difficulty w/ Childcare or Family Care: No Living arrangements: with family Additional living arrangements comments: Occupation/Education: occupation 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 patient): Female Sexual Orientation (if Verbalized by the Patient): Straight or Heterosexual Spiritual care concerns: No Anes - Eval Final PreProcedure Day of Procedure 08/10/23 09:31 Patient weight: normal Heart: regular rate and rhythm Lungs: clear to auscultation Airway: Mallampati scale class II Neurological: alert and oriented Last oral intake: >/= 8 hours ASA classification: III Emergent: no Anesthetic plan: proceed Anesthesia type and monitoring: general GIVS and standard monitoring Results Review: All pre-operative results and documents have been reviewed as part of the pre-operative evaluation. Informed Consent:
--- NOTE | 2023-08-10 09:35 | PM.HPGS ---
History of Present Illness History of Present Illness Consent: Risks, benefits, and alternatives have been discussed and questions answered. Patient agrees to proceed with procedure. Chief complaint: neoplasm screening Narrative: Serge Denton is a 67 year old male here for screening colonoscopy, last one 12 years ago Review of Systems Constitutional: Constitutional: Denies headache(s) and Denies weakness Eyes: Eyes: Denies blurry vision ENT: Reports Normal hearing present, Denies headache(s) and Denies neck pain Cardiovascular: Cardiovascular: Denies chest pain and Denies dyspnea Respiratory: Respiratory: Denies dyspnea Gastrointestinal: Gastrointestinal: Reports no additional gastrointestinal complaints Genitourinary: Genitourinary: Denies dysuria Musculoskeletal: Musculoskeletal: Denies neck pain Integumentary/Breasts: Skin/Breast: Denies dry skin Neurologic: Reports Normal hearing present, Denies headache(s) and Denies weakness Psychiatric: Psychiatric: Denies anxiety Endocrine: Endocrine: Denies change in body appearance Hematologic/Lymphatic: Hematologic/Lymphatic: Denies easy bleeding Allergic/Immunologic: Allergic/Immunologic: Denies urticaria PMFSH Past Medical History Medical History Depression HLD (hyperlipidemia) Hypogonadism Surgical History Surgical History History of bladder surgery Hx of cystoscopy Family History Family History Father Patient's father is in good health Mother No family history of cerebrovascular accident (CVA) Family history of Alzheimer's disease Other Family history of alcoholism Social History Social History Social History: Patient exercises 4-5 times per week. Smoking packs per day: 2 Smoking cigarettes per day: 40.0 Years smoked: 20 Smoking pack-years: 40.00 Smoking status: Former smoker Tobacco type: cigarettes Second hand tobacco smoke exposure: No Smoking end date: 10/03/89 Alcohol intake: former Substance use: former Substance use type: does not use Lack of Transportation: No Lack of Food: Never True Current Housing: I Have Housing Concerned About Future Housing: No Difficulty Paying Gas/Electric Bills: No Difficulty Paying for Meds: No Currently Unemployed: No Education: Master's Degree or Higher Difficulty w/ Childcare or Family Care: No Living arrangements: with family Additional living arrangements comments: Occupation/Education: occupation 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[employer] Gender identity (if verbalized by the patient): Female Sexual Orientation (if Verbalized by the Patient): Straight or Heterosexual Spiritual care concerns: No Meds Home Medications and Allergies Home Medications Medication Instructions Recorded Confirmed Type aspirin 81 mg tablet,delayed 81 mg PO DAILY 05/11/21 08/10/23 History release (Adult Low Dose Aspirin) hydroxyzine HCl 50 mg tablet 25 mg PO DAILY PRN Anxiety 06/30/21 08/10/23 History metoprolol succinate 25 mg 25 mg PO DAILY 06/30/21 08/10/23 History tablet,extended release 24 hr nitroglycerin 0.4 mg sublingual 0.4 mg sublingual Q5-15M PRN Chest 06/30/21 08/10/23 History tablet Pain clopidogrel 75 mg tablet 75 mg PO DAILY 03/21/23 08/10/23 History tamsulosin 0.4 mg capsule 0.4 mg PO DAILY 03/21/23 08/10/23 History venlafaxine 150 mg 150 mg PO QAM 03/21/23 08/10/23 History capsule,extended release 24 hr (Effexor XR) bempedoic acid 180 mg-ezetimibe 10 1 tablet PO DAILY 08/10/23 08/10/23 History mg tablet (Nexlizet) Allergies Allergy/AdvReac Type Severity Reaction Status Date / Time No Known Allergies Allergy Verified 08/10/23 08:42 Vital Signs Vi
[2023-08-10 10:01] VITALS: BP 85/57; PULSE 52; RESP 15; O2SAT 95
[2023-08-10 10:11] VITALS: BP 98/66; PULSE 50; RESP 14; O2SAT 95
[2023-08-10 10:21] VITALS: BP 116/69; PULSE 56; RESP 14; O2SAT 95
== END 2023-08-10 10:32 | disposition home or self-care (01) ==
PROVIDERS: PCP Emergency Medicine; Visit Provider Internal Medicine Gastroenterology
PROC: 0DJD8ZZ Inspection of Lower Intestinal Tract, Via Natural or Artificial Opening Endoscopic (ICD-10-PCS; CPT 45378; principal; 2023-08-10 10:00)
DX: Z12.11 Encounter for screening for malignant neoplasm of colon (principal); K57.30 Diverticulosis of large intestine without perforation or abscess without bleeding; K64.8 Other hemorrhoids; E78.5 Hyperlipidemia, unspecified; F32.A Depression, unspecified; Z79.82 Long term (current) use of aspirin; Z79.02 Long term (current) use of antithrombotics/antiplatelets; Z87.891 Personal history of nicotine dependence
CPT/HCPCS: 45378; J2704; J7120

== ENCOUNTER 2024-02-16 13:45 | Outpatient (CLI) | payer OTHER, SELFPAY ==
--- NOTE | ~2024-02-16 | XR_ITS ---
XR elbow LT 2V DATE: 02/16/2024 13:58 INDICATION: Left elbow pain. No injury. TECHNIQUE: AP and lateral views COMPARISON: None FINDINGS: There is slight spurring of the olecranon process of the proximal ulna. No fracture or disl ocation or joint effusion. No periosteal reaction or bone destruction. IMPRESSION: Olecranon process slight spurring Reviewed, dictated and finalized at location B.
== END 2024-02-16 13:46 | disposition home or self-care (01) ==
LOC: ANHIMG 13:47
PROVIDERS: PCP Emergency Medicine; Visit Provider Emergency Medicine
DX: M25.722 Osteophyte, left elbow (principal)
CPT/HCPCS: 73070

== ENCOUNTER 2024-03-08 15:21 | Outpatient (CLI) | payer OTHER, SELFPAY ==
--- NOTE | ~2024-03-08 | MR_ITS ---
MRI of the left elbow CLINICAL HISTORY: Pain TECHNIQUE: Proton-density and proton-density fat-sat images were performed in the axial, coronal, and sagittal planes. FINDINGS: Ulnar collateral ligament is intact. Radial collateral ligament and the lateral ulnar colla teral ligament are intact. There is moderate tendinosis of the common extensor tendon origin at the l ateral epicondyle of the humerus. Common flexor tendon origin is unremarkable. Bone marrow signals are unremarkable. Articular cartilage of the elbow joint is well-preserved. No si gnificant joint effusion. Biceps, brachialis, and triceps tendons are intact. Visualized muscle bellies are unremarkable. No so ft tissue mass or fluid collection seen. IMPRESSION: Moderate tendinosis of the common extensor tendon origin. Reviewed, dictated and finalized at location M.
== END 2024-03-08 15:22 | disposition home or self-care (01) ==
LOC: ANHIMG 15:22
PROVIDERS: PCP Emergency Medicine; Visit Provider Emergency Medicine
DX: M25.522 Pain in left elbow (principal); M77.8 Other enthesopathies, not elsewhere classified
CPT/HCPCS: 73221

== ENCOUNTER 2025-08-21 09:16 | Outpatient (CLI) | payer OTHER, SELFPAY ==
--- NOTE | ~2025-08-21 | US_ITS ---
EXAMINATION: US soft tissue UE RT, 08/21/2025 9:19 VOCATIONAL PSYCHOLOGIST HISTORY: R22.31 - Localized swelling, mass and lump, right upper limb Comparison: None Technique: Connell-scale and color Doppler images were obtained. Findings: Correlating with the palpable area there is a solid subcutaneous focus measuring 5.8 x 1.2 x 3 cm. There is no increased flow. IMPRESSION: Possible lipoma however the appearance is atypical. Correlate with CT or MRI. Reviewed, dictated and finalized at location P. TIONAL PSYCHOLOGIST
== END 2025-08-21 09:17 | disposition home or self-care (01) ==
LOC: MICIMG 09:18
PROVIDERS: PCP Internal Medicine; Visit Provider Surgery
DX: R22.31 Localized swelling, mass and lump, right upper limb (principal)
CPT/HCPCS: 76882

== ENCOUNTER 2025-09-11 02:02 | Day surgery (SDC) | payer OTHER, MEDICARE, SELFPAY ==
[2025-08-27 14:15] VITALS: BMI 25.2
--- NOTE | 2025-08-27 14:25 | PC.NURSE ---
[facility] has started construction of its new state of the art ER which will open Spring 2026. With this, we anticipate parking may be a challenge for some our surgical patients and families. Parking spaces are limited but are available for all Surgical, obstetrics, and ER patients sharing this lot. If you arrive and find you are having a hard time finding a parking space, please note that we understand the challenges, please drive around the hospital and park near Hospital Entrance 1. When you enter this entrance, you can ask a volunteer to direct or take you back to the surgical waiting area to check in. We appreciate everyone?s understanding of these expected challenges while we build for your future. Report to the Outpatient Waiting Room, entrance under the green pavilion located off [address], at time ___11:00am____ on date ___09/11/25____. Planned Procedure Time: _1:00pm .? Time changes happen often and if your time is changed the preop area will call you the afternoon before. - You and your visitor will be asked to self-screen and do not enter if you have any COVID symptoms. Please call surgeon if you need to reschedule. - A mask is optional within the hospital at this time. Patients may have clear liquids (water, carbonated beverages, clear teas, apple juice) until 3 hours prior to surgery with a maximum of 20 ounces. - No food from midnight until time of surgery and no smoking, or chewing tobacco (or any form of nicotine). No chewing gum, candy or mints. (10:00am) Take only the following medications with a SIP of water on the morning of surgery: ____Venlafaxine, Hydroxyzine DO NOT STOP ANY OF YOUR OTHER PRESCRIPTION MEDICATIONS PRIOR TO SURGERY EXCEPT THE FOLLOWING Hold all vitamins and supplements for 3 days per anesthesiologist. Medications to discontinue per physician ____HOLD Clopidigrel /Plavix for 7 days prior to surgery per Dr Thompson- Date of last dose is 09/03/25 HOLD Wegovy for [address] Thompson. Date to take last dose__09/01/25 Please no make-up, nail libyan, hairspray, perfume, deodorant, or body powder the day of surgery.? No jewelry (including any body piercings) or valuables the day of surgery, leave them at home.? Please take a shower or bath the night before, or the morning of, surgery with an antibacterial soap.? Wear comfortable, loose fitting clothing.? - Jewelry must be removed prior to entering the operating room.? Rings and piercings that are not removed may be cut off. - The hospital will not accept responsibility for valuables.? - Please leave all valuables, including medications, at home the day of surgery. If you are going home after surgery, a licensed courier driver must drive you home.? - NO public transportation without another adult if you receive anesthesia. - We recommend that an adult stay with you for 24 hours following discharge. - We also recommend that you do not drive, make important decision, drink alcoholic beverages, or take any drugs that were not prescribed by your health care provider for at least 24 hours after your discharge time. Follow any additional instructions given to you from your surgeon. Telephone instructions given to __Patient and asked if any additional questions and then verbalized understanding. Patient advised to call surgeon office or pre surgery nurse liaison [phone] if any additional questions.
[2025-09-11 11:00] VITALS: BP 119/77; PULSE 58; RESP 16; TEMP 36.5; O2SAT 100
--- NOTE | 2025-09-11 11:20 | WPDHPUPDATE1 ---
History and Physical Update Update Date/Time: 09/11/25 11:20 History and Physical has been reviewed, including an updated exam of the patient. There are NO changes in the patient's condition. Risks, benefits, and alternatives have been discussed and questions answered. Patient agrees to proceed with procedure.
--- NOTE | 2025-09-11 12:48 | WPDANESEPPF ---
Anes - Initial Pre Proc Eval Procedure: Operation Date: 09/11/25 13:00 Proposed Procedures p Excisional Biopsy of Right Upper Extremities Lipoma - Joanna Thompson MD Date/Time: 09/11/25 12:48 Surgeon: Joanna Thompson MD Pre Op Diagnosis: Right Upper Extremities Lipoma Patient Data Age: 69 Gender: M Height: 1.8 m Weight: 83.15 kg Last Vital Signs Temp 36.5 C 09/11/25 11:00 Pulse 58 L 09/11/25 11:00 Resp 16 09/11/25 11:00 BP 119/77 09/11/25 11:00 Pulse Ox 100 09/11/25 11:00 O2 Del Method Room Air 09/11/25 11:00 Allergies Allergy/AdvReac Type Severity Reaction Status Date / Time No Known Allergies Allergy Verified 09/11/25 11:28 Home Medications ?Medication ?Instructions ?Recorded ?Confirmed ?Type hydroxyzine HCl 50 mg tablet 25 mg PO DAILY PRN Anxiety 06/30/21 08/27/25 History nitroglycerin 0.4 mg sublingual 0.4 mg sublingual Q5-15M PRN Chest 06/30/21 08/27/25 History tablet Pain clopidogrel 75 mg tablet 75 mg PO DAILY 03/21/23 09/11/25 History Held on 08/27/25. Instructions: .Provider Order tamsulosin 0.4 mg capsule 0.4 mg PO DAILY 03/21/23 09/11/25 History venlafaxine 150 mg 150 mg PO QAM 03/21/23 09/11/25 History capsule,extended release 24 hr (Effexor XR) atorvastatin 80 mg tablet (Lipitor) 80 mg PO DAILY 08/13/25 09/11/25 History semaglutide (weight loss) 0.25 0.25 mg subcut WEEKLY 08/13/25 09/11/25 History mg/0.5 mL subcutaneous pen injector (Wegovy) Patient hx anesthesia problems: none Family hx anesthesia problems: none Results Review: All pre-operative results and documents have been reviewed as part of the pre-operative evaluation. 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 Other Family history of alcoholism Social History Social History Social History: Patient exercises 4-5 times per week. Smoking packs per day: 2 Smoking cigarettes per day: 40.0 Years smoked: 20 Smoking pack-years: 40.00 Smoking status: Former smoker Tobacco type: cigarettes Second hand tobacco smoke exposure: No Smoking end date: 10/03/89 Alcohol intake: never Substance use: never Substance use type: does not use Lack of Transportation: No Lack of Food: Never True Current Housing: I Have Housing Concerned About Future Housing: No Difficulty Paying Gas/Electric Bills: No Difficulty Paying for Meds: No Currently Unemployed: Decline to Answer Education: Master's Degree or Higher Difficulty w/ Childcare or Family Care: No Living arrangements: with family Additional living arrangements comments: Spouse Occupation/Education: occupation Additional occupation/education comments: Admin for [employer] Gender identity (if verbalized by the patient): Female Sexual Orientation (if Verbalized by the Patient): Straight or Heterosexual Spiritual care concerns: No Anes - Eval Final PreProcedure Day of Procedure 09/11/25 12:48 Patient weight: normal Heart: regular rate and rhythm Lungs: clear to auscultation Airway: Mallampati scale class II Neurological: alert and oriented Last oral intake: >/= 8 hours ASA classification: III Emergent: no Anesthetic plan: proceed Anesthesia type and monitoring: general GIVS and standard monitoring Results Review: All pre-operative results and documents have been reviewed as part of the pre-operative evaluation. Informed Consent: The patient's anesthetic plan and its attendant risks and benefits were discussed with the patient/family/POA. Questions were solicited and answers provided to the satisfaction of the patient/family/POA.
[2025-09-11] MEDS: ceFAZolin 2 GM in SODIUM CHLORIDE 0.9% IV 50 ML 100 ML IVPB (13:01)
--- NOTE | 2025-09-11 13:18 | S_PTH ---
PATIENT: Serge Denton LOC: [facility] U#:[id number] AGE/SX: 69/M ROOM: RE09/11/[address]: Joanna Thompson MD : 1955 BED: DIS: 09/11/2025 SPEC #: [id number] RECD: 09/11/25 14:45 STATUS: ANTONIO REQ #: [id number] RONAK: 09/11/25 13:[address]: Joanna Thompson DEPT: [facility] Surgical RECD BY: Sheela Boykin ENTERED: 09/11/25 14:46 SP TYPE: Surgical OTHR DR: Hill Bowers, Tissues: A - Mass Procedures: Hematoxylin and Eosin Stain Gross and Microscopic Level 3
[2025-09-11] MEDS: BUPIVACAINE/EPINEPHRINE 0.5% 50 ML VIAL 30 ML INFILTRATE (13:23)
--- NOTE | 2025-09-11 13:32 | SUR.OPER ---
Specimen is 6 cm long
--- NOTE | 2025-09-11 13:44 | W.PM.PROC2 ---
Procedure Note - Detailed Date of Procedure 09/11/25 Pre-op Diagnosis right upper extremity mass Post-op Diagnosis Other ( right upper extremity intra deltoid mass) Procedure Performed Excisional biopsy right intra deltoid mass Surgeon Joanna Thompson MD Anesthesia MAC and Local Indications 69-year-old male presenting to the office with a right upper extremity mass. Patient reports growth in size in symptomatology. Findings 6 x 3 cm intra deltoid mass, most consistent with lipoma Description of Procedure The patient was taken the operating room and placed in the supine position. After adequate induction MAC anesthesia, the patient was prepped and draped normal sterile fashion. A was then to the patient's identity, as well as procedure being performed. I then made an incision in the dermis over the mass in the right deltoid region. This was carried down through the dermis into the subcutaneous tissue. There was very little subcutaneous tissue and no mass was located this area. Upon deeper dissection, there was a well encapsulated mass within the deltoid muscle. Using very careful dissection, I was able to dissect the mass off the surrounding deltoid muscle. This mass was noted to be most consistent with the intra deltoid lipoma. Once removed, it measured approximately 6 x 3 cm. It will now be sent to pathology for further review. No other pathology was seen in the cavity and hemostasis was gained with the Bovie cautery. Further local anesthetic was placed. The subcutaneous tissue was closed with 3-0 Vicryl suture. The skin was closed with 4-0 Monocryl subcuticular suture. Dermabond was placed on the wound. The patient tolerated the procedure well. He was alert and awake in the operating room postoperatively. He will be transferred to the recovery room in stable condition. Estimated Blood Loss 5 Pathology Yes Complications No immediate complications Condition Stable Disposition PACU [facility] Billing Surgery - Charge Forward: Surgery Billing
[2025-09-11 13:48] VITALS: BP 104/41; PULSE 61; RESP 16
[2025-09-11] MEDS: oxyCODONE HCL (*CRX) 5 MG TAB IR PO (14:15)
[2025-09-11 14:20] VITALS: BP 123/56; PULSE 56; RESP 16
[2025-09-11 14:50] VITALS: PULSE 54; RESP 16
== END 2025-09-11 15:03 | disposition home or self-care (01) ==
PROVIDERS: PCP Internal Medicine; Visit Provider Surgery
PROC: (CPT 24071; principal; 2025-09-11 13:00)
DX: D17.21 Benign lipomatous neoplasm of skin and subcutaneous tissue of right arm (principal); K21.9 Gastro-esophageal reflux disease without esophagitis; E55.9 Vitamin D deficiency, unspecified; E29.1 Testicular hypofunction; N52.9 Male erectile dysfunction, unspecified; F41.9 Anxiety disorder, unspecified; I25.10 Atherosclerotic heart disease of native coronary artery without angina pectoris; R53.83 Other fatigue; F32.A Depression, unspecified; Z79.82 Long term (current) use of aspirin; Z79.02 Long term (current) use of antithrombotics/antiplatelets; Z79.85 Long-term (current) use of injectable non-insulin antidiabetic drugs; Z98.890 Other specified postprocedural states; Z87.891 Personal history of nicotine dependence
CPT/HCPCS: 24071; 88304; J0690; A9270; J2704; J3010